=== PATIENT | male | born 1935 | race American Indian/Alaskan Native ===

== ENCOUNTER 2021-03-24 09:49 | Emergency (ER) | payer MEDICARE, OTHER ==
--- NOTE | 2021-03-24 11:41 | Emergency Department Report ---
HPI - General Chief Complaint: Fall Time Seen by Provider: 03/24/21 11:24 - HPI HPI: 85-year-old male with history of hypertension, CAD, and advanced dementia with psychotic features brought in by EMS from his intermediate due to a fall which apparently occurred last night around 8 PM. According to the EMS report, staff at the facility did not know the details of his fall but said he is being transported to the hospital only because of company policy. The patient himself denies any symptoms or complaints. It is unclear whether the patient hit his head when he fell. He is not currently on anticoagulants but takes aspirin. The patient is oriented only to self but not to time, place, or situation. This is apparently his baseline mental status. Further details of the HPI are limited due to the patient's current clinical condition. ED Past Medical Hx - Past Medical History Previous Medical History?: Yes Hx Hypertension: Yes Hx Seizures: Yes Additional medical history: Dementia ED Review of Systems ROS: Stated complaint: FALL Other details as noted in HPI Comment: Unobtainable due to pts medical conditions Physical Exam - Physical Exam Vital Signs: Vital Signs 03/24/21 09:52 Temperature 98.4 F Pulse Rate 85 Respiratory 16 Rate Blood Pressure 141/62 [Left] O2 Sat by Pulse 99 Oximetry Physical Exam: GENERAL: Well developed and well nourished. No acute distress HEAD: Normocephalic. No obvious signs of trauma. ENT: Moist mucous membranes. EYES: Extraocular movements are intact. Pupils are equal round and reactive to light bilaterally NECK: Supple. Full ROM is intact. Trachea is midline. LUNGS: Nonlabored breathing. Equal chest rise bilaterally. Clear to auscultation bilaterally. CARDIOVASCULAR: Regular rate and rhythm. No murmurs or rubs. VASCULAR: Cap refill < 2 seconds ABDOMEN: Abdomen is soft and nondistended. There is no significant tenderness, guarding or rebound. SKIN: Skin is warm and dry NEURO: Patient is awake and alert. He is oriented to self but not to time, place, or situation. logistics tech II-XII grossly intact. No focal deficits. Normal motor and sensory exam throughout. Normal speech. MUSCULOSKELETAL: No obvious deformities. No significant tenderness. Normal ROM throughout. BACK/SPINE: No midline tenderness or step-offs of the C/T/L spine. No costovertebral angle tenderness. ED Course Vital Signs 03/24/21 09:52 Temperature 98.4 F Pulse Rate 85 Respiratory 16 Rate Blood Pressure 141/62 [Left] O2 Sat by Pulse 99 Oximetry ED Medical Decision Making - Lab Data Result diagrams: 03/24/21 12:49 03/24/21 12:49 Lab Results 03/24/21 03/24/21 03/24/21 Range/Units 12:49 12:49 Unknown WBC 6.7 (4.5-11.0) K/mm3 RBC 4.21 (3.65-5.03) M/mm3 Hgb 12.2 (11.8-15.2) gm/dl Hct 38.1 (35.5-45.6) % MCV 91 (84-94) fl MCH 29 (28-32) pg MCHC 32 (32-34) % RDW 13.5 (13.2-15.2) % Plt Count 266 (140-440) K/mm3 Lymph % (Auto) 7.7 L (13.4-35.0) % [place] % (Auto) 15.3 H (0.0-7.3) % Eos % (Auto) 0.0 (0.0-4.3) % Baso % (Auto) 0.3 (0.0-1.8) % Lymph # (Auto) 0.5 L (1.2-5.4) K/mm3 [place] # (Auto) 1.0 H (0.0-0.8) K/mm3 Eos # (Auto) 0.0 (0.0-0.4) K/mm3 Baso # (Auto) 0.0 (0.0-0.1) K/mm3 Seg Neutrophils % 76.7 H (40.0-70.0) % Seg Neutrophils # 5.1 (1.8-7.7) K/mm3 Sodium 134 L (137-145) mmol/L Potassium 4.1 (3.6-5.0) mmol/L Chloride 98.8 (98-107) mmol/L Carbon Dioxide 21 L (22-30) mmol/L Anion Gap 18 mmol/L BUN 9 (9-20) mg/dL Creatinine 0.9 (0.8-1.3) mg/dL Estimated GFR > 60 ml/min BUN/Creatinine Ratio 10 % Glucose 83 (75-100) mg/dL Calcium 9.2 (8.4-10.2) mg/dL Urine Color Straw (Yellow) Urine Turbidity Clear (Clear) Urine pH 7.0 (5.0-7.0) Ur Specific [place] 1.002 L (1.003-1.030) Urine Protein <15 mg/dl (Negative) mg/dL Urine Glucose (UA) Neg (Negative) mg/dL Urine Ketones Neg (Negative) mg/dL Urine Blood Mod (Negative) Urine Nitrite Neg (Negative) Urine Bilirubin Neg (Negative) Urine Urobilinogen < 2.0 (<2.0) mg/dL Ur Leukocyte Esterase Neg (Negative) Urine WBC (Auto) 1.0 (0.0-6.0) /HPF Urine RBC (Auto) < 1.0 (0.0-6.0) /HPF - EKG Data -: EKG Interpreted by [place] - EKG Data 03/24/21 14:55 Normal sinus rhythm. First-degree AV block. Normal axis. Otherwise normal intervals. Anterior Q waves noted. There is no significant ST segment or T wave abnormalities. - Radiology Data Radiology results: report reviewed - Medical Decision Making 85-year-old male with advanced dementia brought in by EMS from his intermediate facility due to a fall which occurred at the facility last night. Details of the fall are unknown. He has no symptoms or complaints at this time. He is afebrile and with normal vital signs. On physical examination, there are no gross signs of trauma. He is oriented to self only. He has a nonfocal neurologic exam otherwise. Nonetheless, given the patient's advanced age and dementia and limited details about the fall, we will perform appropriate work-up with basic labs and plain film x-rays of the chest and pelvis to assess for evidence of traumatic injury. We will also obtain CT of the head and C-spine to assess for evidence of fracture, dislocation, intracranial bleeding, mass, or other finding given the possibility of trauma above the level of the clavicles in a patient greater than 65. We will continue to monitor him closely. Chest x-ray shows no acute abnormalities other than mild cardiomegaly. X-rays of the pelvis show no acute abnormalities. CT of the head shows no acute abnormalities. CT of the cervical spine shows no acute abnormalities. Labs have resulted and reveal no significant leukocytosis or anemia. Creatinine is within normal range and there are no significant electrolyte abnormalities. Urinalysis shows no signs of infection. On repeat assessment, the patient remains asymptomatic. He will be discharged back to his facility. Critical care attestation.: If time is entered above; I have spent that time in minutes in the direct care of this critically ill patient, excluding procedure time. ED Disposition Clinical Impression: Fall from ground level, Dementia Disposition: 03 ASSISTED FACILITY Is pt being admited?: No Instructions: Fall Prevention in the Home, Adult Referrals: PRIMARY CARE, [Primary Care Provider] - 3-5 Days
--- NOTE | 2021-03-24 12:23 | Cat Scan Report ---
CT BRAIN: 03/24/2021 INDICATION / CLINICAL INFORMATION: fall. COMPARISON: None available. FINDINGS: BRAIN/INTRACRANIAL STRUCTURES: Unenhanced CT images of the brain demonstrate no evidence of acute abn ormality. Ventricles and sulci are prominent in size, consistent with age-related diffuse cerebral atrophy. There is no evidence of acute large vessel territory ischemic injury, hemorrhage, or mass. There are no abnormal extra-axial fluid collections. EXTRACRANIAL STRUCTURES: Unremarkable. IMPRESSION: No acute abnormality. Chronic and age-related changes. All CT scans at this location are performed using dose reduction to ALARA by means of automated expos ure control. Signer Name: Vinny Smith MD Signed: 03/24/2021 12:18 PM Workstation Name: [id number]
--- NOTE | 2021-03-24 12:23 | XRay Report ---
XR pelvis 1-2V INDICATION / CLINICAL INFORMATION: fall. COMPARISON: None available. FINDINGS: No acute fracture. Normal alignment. Joint spaces are preserved. No destructive osseous lesion or s uspicious periosteal reaction. Impression: 1.No acute fracture. Signer Name: Zachary Valdez MD Signed: 03/24/2021 12:16 PM Workstation Name: [email or web address]
--- NOTE | 2021-03-24 12:25 | Cat Scan Report ---
CT CERVICAL SPINE: 03/24/2021 INDICATION / CLINICAL INFORMATION: fall. COMPARISON: None available. FINDINGS: CT images of the cervical spine were obtained. Images are evaluated in the axial, coronal, and sagitt al planes. There is no evidence of acute abnormality. There is extensive cervical disc fusion and extensive anterior osteophyte. This disc fusion, seen mos t prominently at C5-T1, may be due to postoperative change or extensive degenerative change. Degenerative changes and fusion also involves the facet joints bilaterally, more extensively on the l eft. CRANIOCERVICAL JUNCTION: Unremarkable. PARASPINAL STRUCTURES: Unremarkable IMPRESSION: No evidence of acute abnormality. Extensive degenerative changes as detailed above. All CT scans at this location are performed using dose reduction to ALARA by means of automated expos ure control. Signer Name: Vinny Smith MD Signed: 03/24/2021 12:20 PM Workstation Name: [id number]
--- NOTE | 2021-03-24 12:29 | XRay Report ---
CHEST 1 VIEW 03/24/2021 12:10 PM INDICATION / CLINICAL INFORMATION: fall. COMPARISON: None available. FINDINGS: SUPPORT DEVICES: None. HEART / MEDIASTINUM: Mild cardiac enlargement. LUNGS / PLEURA: Mild vascular congestion. No pneumothorax. ADDITIONAL FINDINGS: No significant additional findings. IMPRESSION: 1. Mild cardiac enlargement. 2. Mild vascular congestion. Signer Name: Ketan Garrett MD Signed: 03/24/2021 12:25 PM Workstation Name: [id number]
[2021-03-24 13:30] LABS: Basophils % (Auto) 0.3 % (0.0-1.8); Hematocrit 38.1 % (35.5-45.6); Hemoglobin 12.2 gm/dl (11.8-15.2); Lymphocytes # (Auto) 0.5 K/mm3 (1.2-5.4); Lymphocytes % (Auto) 7.7 % (13.4-35.0); Mean Corpuscular HGB Conc 32 % (32-34); Mean Corpuscular Volume 91 fl (84-94); Monocytes % (Auto) 15.3 % (0.0-7.3); Platelet Count 266 K/mm3 (140-440); Red Blood Count 4.21 M/mm3 (3.65-5.03); Red Cell Distribution Width 13.5 % (13.2-15.2)
[2021-03-24 13:49] LABS: BUN/Creatinine Ratio 10; Blood Urea Nitrogen 9 mg/dL (9-20); Calcium 9.2 mg/dL (8.4-10.2); Hemolysis Index 10
[2021-03-24 15:28] LABS: Bilirubin,Urine NEG (Negative); Blood,Urine MOD (Negative); Color,Urine Straw (Yellow); Protein,Urine <15 mg/dL mg/dL (Negative); RBC,Urine < 1.0 /HPF (0.0-6.0); Urobilinogen,Urine < 2.0 mg/dL (<2.0)
[2021-03-25 00:43] VITALS: BP 162/60
--- NOTE | 2021-03-25 12:52 | Electrocardiograph Report ---
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
== END 2021-03-25 00:42 ==
LOC: ED 09:49
DX: F03.90 Unspecified dementia, unspecified severity, without behavioral disturbance, psychotic disturbance, mood disturbance, and anxiety (principal); I10 Essential (primary) hypertension; W01.0XXA Fall on same level from slipping, tripping and stumbling without subsequent striking against object, initial encounter; Y93.89 Activity, other specified; Y92.89 Other specified places as the place of occurrence of the external cause; Y99.8 Other external cause status
CPT/HCPCS: 36415; 70450; 71045; 72125; 72170; 80048; 81001; 85025; 93005; 99284

== ENCOUNTER 2021-05-08 06:01 | Inpatient (IN) | payer OTHER, MEDICARE ==
[2021-05-08] MEDS ORDERED: levETIRAcetam 1000 MG/NS 0.75% 1,000 MG/100 ML BAG IV ONE (06:27)
--- NOTE | 2021-05-08 07:04 | XRay Report ---
CHEST 1 VIEW INDICATION / CLINICAL INFORMATION: seizue. COMPARISON: 03/24/2021 FINDINGS: SUPPORT DEVICES: None. HEART / MEDIASTINUM: No significant abnormality. LUNGS / PLEURA: No significant pulmonary or pleural abnormality. No pneumothorax. ADDITIONAL FINDINGS: No significant additional findings. IMPRESSION: 1. No acute findings. No interval change. Signer Name: Rasheeda Rob MD Signed: 05/08/2021 6:59 AM Workstation Name: [id number]
--- NOTE | 2021-05-08 07:21 | Emergency Department Report ---
ED Seizure HPI - General Chief Complaint: Seizure Stated Complaint: SEIZURES Time Seen by Provider: 05/08/21 06:16 Source: EMS, RN notes reviewed, old records reviewed Mode of arrival: Stretcher Limitations: Other - History of Present Illness Initial Comments: 85-year-old male with a past medical history of seizures currently on Keppra, dementia, hypertension, elevated cholesterol, and BPH presents to the hospital from detention for seizure. Patient is apparently at baseline currently and is primarily nonverbal secondary to significant dementia. History obtained from EMS who state that staff witnessed a 2-minute seizure followed by postictal state with return to baseline mental status. Positive bleeding from mouth noted secondary to tongue laceration. Dentures removed after seizure. Patient has been compliant with medications administer by detention. EMS reports that the EKG revealed first-degree AV block with intermittent dropped beats on rhythm strip. - Related Data Allergies Allergy/AdvReac Type Severity Reaction Status Date / Time baclofen Allergy Unknown Verified 05/08/21 06:35 ED Review of Systems ROS: Stated complaint: SEIZURES Other details as noted in HPI Comment: Unobtainable due to pts medical conditions ED Past Medical Hx - Past Medical History Hx Hypertension: Yes Hx Seizures: Yes Additional medical history: Dementia ED Physical Exam - General Limitations: No Limitations - Other Other exam information: General: No acute distress Head: Atraumatic Eyes: normal appearance ENT: Right-sided centimeter tongue laceration without gaping, no active bleeding Neck: Normal appearance, no midline tenderness Chest: Clear to auscultation bilaterally CV: Regular rate and rhythm Abdomen: Soft, normal bowel sounds, nontender, nondistended, no rebound or guarding Back: Normal inspection Extremity: Normal inspection, full range of motion Neuro: Alert not speaking reliably following commands Psych: Appropriate behavior Skin: No rash ED Course Vital Signs 05/08/21 05/08/21 05/08/21 06:44 06:46 07:00 Temperature Pulse Rate 87 82 Respiratory 18 22 Rate Blood Pressure 171/79 O2 Sat by Pulse 98 99 96 Oximetry 05/08/21 05/08/21 05/08/21 07:21 07:30 07:46 Temperature 98.2 F Pulse Rate 65 74 Respiratory 14 10 L Rate Blood Pressure 162/79 158/77 O2 Sat by Pulse 97 98 Oximetry 05/08/21 05/08/21 05/08/21 08:19 08:31 08:45 Temperature Pulse Rate 81 78 82 Respiratory 18 15 20 Rate Blood Pressure 158/77 156/82 219/87 O2 Sat by Pulse 98 100 Oximetry 05/08/21 09:01 Temperature Pulse Rate 76 Respiratory 15 Rate Blood Pressure 173/73 O2 Sat by Pulse 100 Oximetry - Consultations Consultation #1: 05/08/21 09:06 Dr. Kruse was consulted to evaluate patient regarding abnormal EKG/rhythm strip findings first-degree AV block with intermittent drop P and QRS complexes 05/08/21 09:42 Cardiology consult at the bedside appreciated. Rhythm likely first-degree AV block with sinus pause and does not represent any type II block ED Medical Decision Making - Lab Data Result diagrams: 05/08/21 06:56 05/08/21 06:56 Lab Results 05/08/21 05/08/21 Range/Units 06:56 06:56 WBC 11.9 H (4.5-11.0) K/mm3 RBC 4.49 (3.65-5.03) M/mm3 Hgb 12.4 (11.8-15.2) gm/dl Hct 39.6 (35.5-45.6) % MCV 88 (84-94) fl MCH 28 (28-32) pg MCHC 31 L (32-34) % RDW 14.1 (13.2-15.2) % Plt Count 286 (140-440) K/mm3 Add Manual Diff Complete Total Counted 100 Seg Neutrophils % Fire Engine Operator Seg Neuts % (Manual) 87.0 H (40.0-70.0) % Band Neutrophils % 0 % Lymphocytes % (Manual) 5.0 L (13.4-35.0) % Reactive Lymphs % (Man) 0 % Monocytes % (Manual) 7.0 (0.0-7.3) % Eosinophils % (Manual) 1.0 (0.0-4.3) % Basophils % (Manual) 0 (0.0-1.8) % Metamyelocytes % 0 % Myelocytes % 0 % Promyelocytes % 0 % Blast Cells % 0 % Nucleated RBC % Not Reportable Seg Neutrophils # Man 10.4 H (1.8-7.7) K/mm3 Band Neutrophils # 0.0 K/mm3 Lymphocytes # (Manual) 0.6 L (1.2-5.4) K/mm3 Abs React Lymphs (Man) 0.0 K/mm3 Monocytes # (Manual) 0.8 (0.0-0.8) K/mm3 Eosinophils # (Manual) 0.1 (0.0-0.4) K/mm3 Basophils # (Manual) 0.0 (0.0-0.1) K/mm3 Metamyelocytes # 0.0 K/mm3 Myelocytes # 0.0 K/mm3 Promyelocytes # 0.0 K/mm3 Blast Cells # 0.0 K/mm3 WBC Morphology Not Reportable Hypersegmented Neuts Not Reportable Hyposegmented Neuts Not Reportable Hypogranular Neuts Not Reportable Smudge Cells Not Reportable Toxic Granulation Not Reportable Toxic Vacuolation Not Reportable Dohle Bodies Not Reportable Pelger-Huet Anomaly Not Reportable Sondra Rods Not Reportable Platelet Estimate Consistent w auto Clumped Platelets Not Reportable Plt Clumps, EDTA Not Reportable Large Platelets Not Reportable Giant Platelets Not Reportable Platelet Satelliting Not Reportable Plt Morphology Comment Not Reportable RBC Morphology Normal Dimorphic RBCs Not Reportable Polychromasia Not Reportable Hypochromasia Not Reportable Poikilocytosis Not Reportable Anisocytosis Not Reportable Microcytosis Not Reportable Macrocytosis Not Reportable Spherocytes Not Reportable Pappenheimer Bodies Not Reportable Sickle Cells Not Reportable Target Cells Not Reportable Tear Drop Cells Not Reportable Ovalocytes Not Reportable Helmet Cells Not Reportable Amado-Beatrice Bodies Not Reportable [place] Rings Not Reportable Wilma Cells Not Reportable Bite Cells Not Reportable Crenated Cell Not Reportable Elliptocytes Not Reportable Acanthocytes (Spur) Not Reportable Rouleaux Not Reportable Hemoglobin C Crystals Not Reportable Schistocytes Not Reportable Malaria parasites Not Reportable Joshua Bodies Not Reportable Hem Pathologist Commnt No Sodium 122 L (137-145) mmol/L Potassium 3.9 (3.6-5.0) mmol/L Chloride 86.1 L (98-107) mmol/L Carbon Dioxide 20 L (22-30) mmol/L Anion Gap 20 mmol/L BUN 6 L (9-20) mg/dL Creatinine 0.7 L (0.8-1.3) mg/dL Estimated GFR > 60 ml/min BUN/Creatinine Ratio 9 % Glucose 117 H (75-100) mg/dL Calcium 9.4 (8.4-10.2) mg/dL Magnesium 1.90 (1.7-2.3) mg/dL - EKG Data -: EKG Interpreted by Me (First-degree AV block with functional) EKG shows normal: sinus rhythm, intervals (Prolonged MI interval 290), QRS complexes (QRS duration normal 83), ST-T waves (No STEMI) - EKG Data When compared to previous EKG there are: changes noted (Chronic first-degree block with new drop in QRS complex) 05/08/21 09:10 EMS rhythm strips first-degree AV block with intermittent dropped P and QRS complexes. Narrow complex qrs - Radiology Data Radiology results: report reviewed CHEST 1 VIEW INDICATION / CLINICAL INFORMATION: seizue. COMPARISON: 03/24/2021 FINDINGS: SUPPORT DEVICES: None. HEART / MEDIASTINUM: No significant abnormality. LUNGS / PLEURA: No significant pulmonary or pleural abnormality. No pneumothorax. ADDITIONAL FINDINGS: No significant additional findings. IMPRESSION: 1. No acute findings. No interval change. CT HEAD WITHOUT CONTRAST INDICATION / CLINICAL INFORMATION: seizure, dementia. TECHNIQUE: All CT scans at this location are performed using CT dose reduction for ALARA by means of automated exposure control. COMPARISON: None available. FINDINGS: HEMORRHAGE: No evidence of intracranial hemorrhage or extra-axial fluid collection. EXTRA-AXIAL SPACES: Cortical sulci and sylvian fissures are enlarged reflecting a degree of parenchymal volume loss which is within normal limits for the patient's age of 85 years. Basilar cisterns have an unremarkable appearance. VENTRICULAR SYSTEM: The third and lateral ventricles are enlarged reflecting presence of central greater than cortical parenchymal volume loss. CEREBRAL PARENCHYMA: Periventricular and deep white matter lucency is observed. This is probably secondary to microvascular ischemic change. There is no indication of recent infarction. No areas of encephalomalacia are identified. MIDLINE SHIFT OR HERNIATION: There is no mass effect. CEREBELLUM / BRAINSTEM: Brainstem has an unremarkable appearance. Age related cerebellar atrophy is noted. MIDLINE STRUCTURES:Pituitary gland has an unremarkable appearance. No abnormalities are seen in the pineal region. INTRACRANIAL VESSELS: Calcified atherosclerotic plaque is seen at the proximal V4 segment of the left vertebral artery. CRANIOCERVICAL JUNCTION:No significant abnormality. ORBITS: visualized portions of the orbits have an unremarkable appearance. SOFT TISSUES of HEAD: No significant abnormality. CALVARIUM: Evaluation of bone windows reveals no abnormalities. PARANASAL SINUSES / MASTOID AIR CELLS: Paranasal sinuses are free from inflammatory mucosal disease. Mastoid air cells are normally pneumatized. ADDITIONAL FINDINGS: None. IMPRESSION: 1. Central greater than cortical parenchymal volume loss and moderate microvascular ischemic change. 2. No acute intracranial abnormality. No significant interval change in comparison to head CT 03/24/2021. - Medical Decision Making 85-year-old demented patient with history of seizures presents to the hospital after having a seizure at the detention despite medication noncompliance. Patient apparently is at his baseline but he has significant dementia and unable to communicate or reliably follow commands. CT head unchanged compared to March 2021. Patient does have a tongue laceration that is not gaping or actively bleeding. Labs reveal hyponatremia and normal saline initiated. Cardiology consult requested to review EMS rhythm strips and EKG for rhythm clarification and management. Dr. Kruse came to bedside to evaluate EKG and interprets rhythm as first- degree AV block with sinus pause Critical Care Time: No Critical care attestation.: If time is entered above; I have spent that time in minutes in the direct care of this critically ill patient, excluding procedure time. ED Disposition Clinical Impression: Breakthrough seizure, Hyponatremia, Tongue laceration, Dementia, AV block, 1st degree Disposition: 09 ADMITTED INPATIENT Is pt being admited?: Yes Condition: Stable Referrals: PRIMARY CARE, [Primary Care Provider] - 3-5 Days Time of Disposition: 09:06
[2021-05-08 07:52] LABS: Hematocrit 39.6 % (35.5-45.6); Hemoglobin 12.4 gm/dl (11.8-15.2); Mean Corpuscular HGB Conc 31 % (32-34); Mean Corpuscular Volume 88 fl (84-94); Platelet Count 286 K/mm3 (140-440); Red Blood Count 4.49 M/mm3 (3.65-5.03); Red Cell Distribution Width 14.1 % (13.2-15.2)
[2021-05-08 07:59] LABS: Blood Urea Nitrogen 6 mg/dL (9-20); Calcium 9.4 mg/dL (8.4-10.2); Hemolysis Index 14
[2021-05-08] MEDS ORDERED: SODIUM CHLORIDE 0.9% 1000 ML 1,000 ML IV ONE (08:02)
[2021-05-08 08:19] LABS: BUN/Creatinine Ratio 9
[2021-05-08 08:39] LABS: Basophils % (Manual) 0 % (0.0-1.8); Platelet Estimate Consistent w Auto; RBC Morphology Normal; Total Cells Counted 100
--- NOTE | 2021-05-08 08:47 | Cat Scan Report ---
CT HEAD WITHOUT CONTRAST INDICATION / CLINICAL INFORMATION: seizure, dementia. TECHNIQUE: All CT scans at this location are performed using CT dose reduction for ALARA by means of automated e xposure control. COMPARISON: None available. FINDINGS: HEMORRHAGE: No evidence of intracranial hemorrhage or extra-axial fluid collection. EXTRA-AXIAL SPACES: Cortical sulci and sylvian fissures are enlarged reflecting a degree of parenchym al volume loss which is within normal limits for the patient's age of 85 years. Basilar cisterns have an unremarkable appearance. VENTRICULAR SYSTEM: The third and lateral ventricles are enlarged reflecting presence of central grea ter than cortical parenchymal volume loss. CEREBRAL PARENCHYMA: Periventricular and deep white matter lucency is observed. This is probably seco ndary to microvascular ischemic change. There is no indication of recent infarction. No areas of ence phalomalacia are identified. MIDLINE SHIFT OR HERNIATION: There is no mass effect. CEREBELLUM / BRAINSTEM: Brainstem has an unremarkable appearance. Age related cerebellar atrophy is n oted. MIDLINE STRUCTURES:Pituitary gland has an unremarkable appearance. No abnormalities are seen in the p ineal region. INTRACRANIAL VESSELS: Calcified atherosclerotic plaque is seen at the proximal V4 segment of the left vertebral artery. CRANIOCERVICAL JUNCTION:No significant abnormality. ORBITS: visualized portions of the orbits have an unremarkable appearance. SOFT TISSUES of HEAD: No significant abnormality. CALVARIUM: Evaluation of bone windows reveals no abnormalities. PARANASAL SINUSES / MASTOID AIR CELLS: Paranasal sinuses are free from inflammatory mucosal disease. Mastoid air cells are normally pneumatized. ADDITIONAL FINDINGS: None. IMPRESSION: 1. Central greater than cortical parenchymal volume loss and moderate microvascular ischemic change. 2. No acute intracranial abnormality. No significant interval change in comparison to head CT 021. Signer Name: Nasir Colin MD Signed: 05/08/2021 8:43 AM Workstation Name: [id number]
[2021-05-08] MEDS ORDERED: oxyCODONE /ACETAMINOPHEN 5-325MG TAB PO PRN (11:48)
[2021-05-08] MEDS ORDERED: ONDANSETRON 4 MG/2 ML INJ IV PRN (11:48)
[2021-05-08] MEDS ORDERED: HYDROmorphone 1 MG/1 ML INJ IV PRN (11:48)
[2021-05-08] MEDS ORDERED: ACETAMINOPHEN 325 MG TAB PO PRN (11:48)
[2021-05-08] MEDS ORDERED: ALBUTEROL 2.5 MG/3 ML NEBU IH PRN (11:48)
--- NOTE | 2021-05-08 11:48 | History and Physical Report ---
History of Present Illness Chief complaint: He had a seizure History of present illness: 85 YO Male [facility] Resident with HTN, Vascular Dementia, Cerebral Atherosclerosis, Seizure disorder, HLD, BPH presents to ED for evaluation. Patient is confused with diminished cognition at the time of my evaluation and is unable to provide history. Patient history taken from EMS staff, ED staff, as well as [facility] facility staff. As per staff the patient experienced multiple witnessed seizures that lasted for longer than 5 minutes. EMS was notified and upon arrival the patient was found to be in distress and subsequently transported to [facility] for further care and evaluation of the aforementioned symptoms. The patient was seen and evaluated in the emergency department. All lab and imaging studies reviewed. Patient found to have status epilepticus currently in a postictal state, metabolic en cephalopathy, hyponatremia syndrome, metabolic acidosis, accelerated hypertension. Patient admitted to [facility] due to increased risk of worsening symptoms. Patient treated with IV fluid resuscitation therapy, serial sodium monitoring. Patient also found to have first-degree heart block on EKG. Card iology team consulted in ED. No reports of fever, chills, chest pain, palpitation, productive cough, skin rash, recent contact, known exposure to COVID-19. No prior admission for review. All medication listed at time of admission has been reconciled. Advanced care planning conducted in ED. Past History Past Medical History: hypertension, hyperlipidemia, seizures, other (See HPI) Past Surgical History: No surgical history, Other (Reviewed) Social history: single. denies: smoking, alcohol abuse, prescription drug abuse Family history: hypertension Medications and Allergies Allergies Allergy/AdvReac Type Severity Reaction Status Date / Time baclofen Allergy Unknown Verified 05/08/21 06:35 Active Meds: Active Medications Sodium Chloride (Nacl 0.9% 1000 Ml) 1,000 mls @ 250 mls/hr IV ONCE ONE Stop: 05/08/21 12:01 Review of Systems ROS unobtainable: due to mental status Exam - Constitutional Vitals: Temp Pulse Resp BP Pulse Ox 98.2 F 75 14 169/57 100 05/08/21 07:21 05/08/21 10:31 05/08/21 10:31 05/08/21 10:31 05/08/21 10:31 General appearance: Present: mild distress - EENT Eyes: Present: PERRL ENT: clear oral mucosa, hearing decreased - Neck Neck: Present: supple, normal ROM - Respiratory Respiratory effort: normal Respiratory: bilateral: CTA - Cardiovascular Heart Sounds: Present: S1 & S2. Absent: rub, click - Extremities Extremities: pulses symmetrical, No edema Peripheral Pulses: within normal limits - Abdominal General gastrointestinal: Present: soft, non-tender, non-distended, normal bowel sounds Male genitourinary: Present: normal - Integumentary Integumentary: Present: clear, dry, clammy - Musculoskeletal Musculoskeletal: generalized weakness - Psychiatric Psychiatric: no appropriate mood/affect, no intact judgment & insight, no memory intact - Neurologic Neurologic: CNII-XII intact, no focal deficits, moves all extremities, no gait normal Results - Labs CBC & Chem 7: 05/08/21 06:56 05/08/21 06:56 Labs: Abnormal lab results 05/08/21 05/08/21 Range/Units 06:56 06:56 WBC 11.9 H (4.5-11.0) K/mm3 MCHC 31 L (32-34) % Seg Neuts % (Manual) 87.0 H (40.0-70.0) % Lymphocytes % (Manual) 5.0 L (13.4-35.0) % Seg Neutrophils # Man 10.4 H (1.8-7.7) K/mm3 Lymphocytes # (Manual) 0.6 L (1.2-5.4) K/mm3 Sodium 122 L (137-145) mmol/L Chloride 86.1 L (98-107) mmol/L Carbon Dioxide 20 L (22-30) mmol/L BUN 6 L (9-20) mg/dL Creatinine 0.7 L (0.8-1.3) mg/dL Glucose 117 H (75-100) mg/dL Assessment and Plan - Patient Problems (1) Hyponatremia syndrome Current Visit: Yes Status: Acute Plan to address problem: IV fluid resuscitation therapy, serial BMP, neuro check, seizure precautions, aspiration precautions, repeat BMP in a.m., Monitor fluid balance. (2) Status epilepticus Current Visit: Yes Status: Acute Plan to address problem: Currently in a postictal state, seizure precautions, aspiration precautions, supportive care, Keppra level. Keppra therapy. (3) Metabolic acidosis Current Visit: Yes Status: Acute Plan to address problem: IV fluid resuscitation therapy, supportive care. BMP, repeat BMP in a.m. (4) Hypertensive urgency Current Visit: Yes Status: Acute Plan to address problem: Monitor blood pressure every shift, continue oral antihypertensive therapy. (5) Metabolic encephalopathy Current Visit: Yes Status: Acute Plan to address problem: Neuro check, seizure precautions, supportive care. Aspiration precautions, fall precautions. (6) AV block, 1st degree Current Visit: Yes Status: Acute Plan to address problem: Cardiology team consulted, further care and evaluation as per cardiology team (7) DVT prophylaxis Current Visit: Yes Status: Acute Plan to address problem: SCD to bilateral lower extremities while in bed (8) Advance care planning Current Visit: Yes Status: Acute Plan to address problem: Disease education conducted, care plan discussed, diagnoses discussed, prognosis discussed, patient is full code, +30 minutes.
--- NOTE | 2021-05-08 13:10 | Consultation ---
History of Present Illness Consult date: 05/08/21 Requesting physician: CHUN PABON Consult reason: other (Abnormal EKG rhythm) History of present illness: Patient is a 85-year-old male with a past medical history as of seizure, dementia, hypertension, hyperlipidemia and BPH who was [facility] a [facility] for [facility]. History is taken from the chart due to patient's mental status. Per documentation patient is primarily nonverbal and altered due to his dementia. half-way staff witnessed a 2-minute seizure followed by postictal state and patient. Patient also had tongue laceration after his seizure. Patient was then transported to [facility]. In ED patient found to be hyponatremic and have EKG with first-degree block with sinus pauses. Patient is previously unknown to our practice. Cardiology is co nsulted for abnormal rhythm strip Past History Past Medical History: hypertension, seizures, other (dementia) Medications and Allergies Allergies Allergy/AdvReac Type Severity Reaction Status Date / Time baclofen Allergy Unknown Verified 05/08/21 06:35 Active Meds: Active Medications Acetaminophen (Acetaminophen 325 Mg Tab) 650 mg PO Q4H PRN PRN Reason: Pain MILD(1-3)/Fever >100.5/TALAVERA Albuterol (Albuterol 2.5 Mg/3 Ml Nebu) 2.5 mg IH Q4HRT PRN PRN Reason: Shortness Of Breath Hydromorphone HCl (Hydromorphone 1 Mg/1 Ml Inj) 0.5 mg IV Q23H PRN PRN Reason: Pain , Severe (7-10) Sodium Chloride (Nacl 0.9% 1000 Ml) 1,000 mls @ 100 mls/hr IV DIRECT NATALIE Ondansetron HCl (Ondansetron 4 Mg/2 Ml Inj) 4 mg IV Q8H PRN PRN Reason: Nausea And Vomiting Oxycodone/Acetaminophen (Oxycodone /Acetaminophen 5-325mg Tab) 1 tab PO Q16H PRN PRN Reason: Pain, Moderate (4-6) Sodium Chloride (Sodium Chloride 0.9% 10 Ml Flush Syringe) 10 ml IV BID NATLAIE Sodium Chloride (Sodium Chloride 0.9% 10 Ml Flush Syringe) 10 ml IV PRN PRN PRN Reason: LINE FLUSH Review of Systems ROS unobtainable: due to mental status Physical Examination Vital Signs Pulse Ox 98 01/31/22 06:44 General appearance: no acute distress HEENT: Positive: PERRL Neck: Positive: trachea midline Cardiac: Positive: Reg Rate and Rhythm Lungs: Positive: Normal Breath Sounds Neuro: Positive: Grossly Intact Abdomen: Positive: Soft Skin: Negative: Rash, Suspicious Lesions, Ulceration Extremities: Present: upper extr. pulses. Absent: edema Results 05/08/21 06:56 05/08/21 06:56 CBC 05/08/21 Range/Units 06:56 WBC 11.9 H (4.5-11.0) K/mm3 RBC 4.49 (3.65-5.03) M/mm3 Hgb 12.4 (11.8-15.2) gm/dl Hct 39.6 (35.5-45.6) % Plt Count 286 (140-440) K/mm3 Comprehensive Metabolic Panel 05/08/21 Range/Units 06:56 Sodium 122 L (137-145) mmol/L Potassium 3.9 (3.6-5.0) mmol/L Chloride 86.1 L (98-107) mmol/L Carbon Dioxide 20 L (22-30) mmol/L BUN 6 L (9-20) mg/dL Creatinine 0.7 L (0.8-1.3) mg/dL Glucose 117 H (75-100) mg/dL Calcium 9.4 (8.4-10.2) mg/dL - Imaging and Cardiology Echo: pending EKG interpretations - Telemetry EKG Rhythm: Sinus Rhythm - EKG Sinus rhythms and dysrhythmias: sinus rhythm AV and intraventricular conduction: 1 AV block Assessment and Plan Patient is a 85-year-old male with a past medical history as of seizure, dementia, hypertension, hyperlipidemia and BPH who was [facility] for [facility] Seizures Hyponatremia Abnormal EKG Dementia HTN Plan: EKG shows sinus 83 with first-degree AV block and sinus pause. No acute ischemic changes At time of interview patient is resting in bed in no acute distress. Sinus pauses may be result of seizure and hyponatremia. Recommend correcting electrolyte imbalance Echo pending Recommend holding beta-blockers due to sinus pauses. Continue to monitor on telemetry Repeat EKG in a.m. Patient in conjunction with Dr. Kruse who agrees with this plan of care - Patient Problems (1) AV block, 1st degree Current Visit: Yes Status: Acute (2) Breakthrough seizure Current Visit: Yes Status: Acute (3) Dementia Current Visit: Yes Status: Acute (4) Hyponatremia Current Visit: Yes Status: Acute (5) Tongue laceration Current Visit: Yes Status: Acute
[2021-05-09] MEDS: SODIUM CHLORIDE 0.9% 1000 ML 1,000 ML IV SCH ×2 (00:52→09:39)
[2021-05-09 06:09] LABS: BUN/Creatinine Ratio 10; Blood Urea Nitrogen 10 mg/dL (9-20); Calcium 9.4 mg/dL (8.4-10.2); Hemolysis Index 3
--- NOTE | 2021-05-09 09:32 | Consultation ---
History of Present Illness Consult date: 05/09/21 Reason for Consult: witnessed seizure, advanced Dementia History of present illness: He had a seizure History of present illness: 85 YO Male [facility] Facility Resident with HTN, Vascular Dementia, Cerebral Atherosclerosis, Seizure disorder, HLD, BPH presents to ED for evaluation. Patient is confused with diminished cognition at the time of my evaluation and is unable to provide history. Patient history taken from EMS staff, ED staff, as well as retirement facility staff. As per staff the patient experienced multiple witnessed seizures that lasted for longer than 5 minutes. EMS was notified and upon arrival the patient was found to be in distress and subsequently transported to [facility] for further care and evaluation of the aforementioned symptoms. The patient was seen and evaluated in the emerge ncy department. All lab and imaging studies reviewed. Patient found to have status epilepticus currently in a postictal state, metabolic encephalopathy, hyponatremia syndrome, metabolic acidosis, accelerated hypertension. Patient admitted to IMCU due to increased risk of worsening symptoms. Patient treated with IV fluid resuscitation therapy, serial sodium monitoring. Patient also found to have first-degree heart block on EKG. Cardiology team consulted in ED. No reports of fever, chills, chest pain, palpitation, productive cough, skin rash, recent contact, known exposure to COVID-19. No prior admission for review. All medication listed at time of admission has been reconciled. Torie castellanos care planning conducted in ED. Today he is alert oriented to name and birthday only ,he report having seizure he bit his tongue CT brain is remarkable for atrophy NA today is 139 Past History Past Medical History: hypertension, hyperlipidemia, seizures, other (See HPI) Past Surgical History: No surgical history, Other (Reviewed) Social history: single. denies: smoking, alcohol abuse, prescription drug abuse Family history: hypertension Medications and Allergies Allergies Allergy/AdvReac Type Severity Reaction Status Date / Time baclofen Allergy Unknown Verified 05/08/21 06:35 Active Meds: Active Medications Sodium Chloride (Nacl 0.9% 1000 Ml) 1,000 mls @ 250 mls/hr IV ONCE ONE Stop: 05/08/21 12:01 Review of Systems ROS unobtainable: due to mental status Past History Past Medical History: hypertension, hyperlipidemia, seizures, other (See HPI) Past Surgical History: No surgical history, Other (Reviewed) Social history: single. denies: smoking, alcohol abuse, prescription drug abuse Family history: hypertension Medications and Allergies Allergies Allergy/AdvReac Type Severity Reaction Status Date / Time baclofen Allergy Unknown Verified 05/08/21 06:35 Home Medications Medication Instructions Recorded Confirmed Last Taken Type Aspirin BABY CHEW TAB 81 mg PO QDAY 05/09/21 05/09/21 05/08/21 09:00 History AtorvaSTATin [Lipitor] 10 mg PO QHS 05/09/21 05/09/21 05/08/21 19:00 History Folic Acid [Folvite] 1 mg PO QDAY 05/09/21 05/09/21 05/08/21 09:00 History Metoprolol [Lopressor TAB] 50 mg PO QDAY 05/09/21 05/09/21 05/08/21 09:00 History Perphenazine 2 mg PO QDAY 05/09/21 05/09/21 05/08/21 09:00 History Sennosides Tab [Senokot] 17.2 mg PO BID 05/09/21 05/09/21 05/08/21 19:00 History Tamsulosin [Flomax] 0.8 mg PO QDAY 05/09/21 05/09/21 05/08/21 09:00 History amLODIPine 10 mg PO QDAY 05/09/21 05/09/21 05/08/21 09:00 History levETIRAcetam [Keppra TAB] 750 mg PO BID 05/09/21 05/09/21 05/08/21 17:00 History Active Meds: Active Medications Acetaminophen (Acetaminophen 325 Mg Tab) 650 mg PO Q4H PRN PRN Reason: Pain MILD(1-3)/Fever >100.5/TALAVERA Albuterol (Albuterol 2.5 Mg/3 Ml Nebu) 2.5 mg IH Q4HRT PRN PRN Reason: Shortness Of Breath Amlodipine Besylate (Amlodipine 10 Mg Tab) 10 mg PO DAILY NATALIE Aspirin (Aspirin Ec 81 Mg Tab) 81 mg PO QDAY NATALIE Atorvastatin Calcium (Atorvastatin 10 Mg Tab) 10 mg PO QHS NATALIE Folic Acid (Folic Acid 1 Mg Tab) 1 mg PO QDAY NATALIE Hydromorphone HCl (Hydromorphone 1 Mg/1 Ml Inj) 0.5 mg IV Q23H PRN PRN Reason: Pain , Severe (7-10) Last Admin: 05/08/21 16:30 Dose: 0.5 mg Sodium Chloride (Nacl 0.9% 1000 Ml) 1,000 mls @ 100 mls/hr IV DIRECT NATALIE Last Admin: 05/09/21 00:52 Dose: 100 mls/hr Levetiracetam (Levetiracetam 500 Mg/5 Ml Oral Liqd) 750 mg PO BID [facility] Metoprolol Succinate (Metoprolol Succinate Xl 50 Mg Tab) 50 mg PO QDAY [facility] Ondansetron HCl (Ondansetron 4 Mg/2 Ml Inj) 4 mg IV Q8H PRN PRN Reason: Nausea And Vomiting Oxycodone/Acetaminophen (Oxycodone /Acetaminophen 5-325mg Tab) 1 tab PO Q16H PRN PRN Reason: Pain, Moderate (4-6) Perphenazine (Perphenazine 4 Mg Tab) 2 mg PO QDAY [facility] Senna (Sennosides 8.6 Mg Tab) 17.2 mg PO BID [facility] Sodium Chloride (Sodium Chloride 0.9% 10 Ml Flush Syringe) 10 ml IV BID [facility] Last Admin: 05/08/21 22:55 Dose: 10 ml Sodium Chloride (Sodium Chloride 0.9% 10 Ml Flush Syringe) 10 ml IV PRN PRN PRN Reason: LINE FLUSH Tamsulosin HCl (Tamsulosin 0.4 Mg Cap) 0.8 mg PO QDAY [facility] Physical Examination - Vital Signs Vital Signs: Vital Signs Pulse Ox 98 05/08/21 06:44 - Constitutional General appearance: comfortable - EENT EENT: Present: PERRL, mucous membranes moist - Respiratory Respiratory: Present: lungs clear, rhonchi - Cardiovascular Cardiovascular: Present: regular rate, normal S1, normal S2 Extremities: Present: no peripheral edema bilatateraly, no clubbing, cyanosis - Gastrointestinal Gastrointestinal: Present: normoactive bowel sounds - Integumentary Integumentary: Present: normal - Neurologic Cranial nerve examination: PERRL, EOMI, facial droop Speech examination: intact Sensorimotor examination: intact Detailed motor examination: grossly full strength in Results - Laboratory Findings CBC and BMP: 05/08/21 06:56 05/09/21 04:59 Abnormal Lab Findings: Abnormal Labs 05/08/21 05/08/21 06:56 06:56 WBC 11.9 H MCHC 31 L Seg Neuts % (Manual) 87.0 H Lymphocytes % (Manual) 5.0 L Seg Neutrophils # Man 10.4 H Lymphocytes # (Manual) 0.6 L Sodium 122 L Chloride 86.1 L Carbon Dioxide 20 L BUN 6 L Creatinine 0.7 L Glucose 117 H Assessment and Plan Assessment and Plan 85 YO Male [facility] Facility Resident with HTN, Vascular Dementia, Cerebral Atherosclerosis, Seizure disorder, HLD, BPH presents to ED for evaluation. Patient is confused with diminished cognition at the time of my evaluation and is unable to provide history. Patient history taken from EMS staff, ED staff, as well as retirement facility staff. As per staff the patient experienced multiple witnessed seizures that lasted for longer than 5 minutes. EMS was notified and upon arrival the patient was found to be in distress and subsequently transported to [facility] for further care and evaluation of the aforementioned symptoms. The patient was seen and evaluated in the emergency department. All lab and imaging studies reviewed. Patient found to have status epilepticus currently in a postictal state, metabolic encephalopat hy, hyponatremia syndrome, metabolic acidosis, accelerated hypertension. Patient admitted to IMCU due to increased risk of worsening symptoms. Patient treated with IV fluid resuscitation therapy, serial sodium monitoring. Patient also found to have first-degree heart block on EKG. Cardiology team consulted in ED. No reports of fever, chills, chest pain, palpitation, productive cough, skin rash, recent contact, known exposure to COVID-19. No prior admission for review. All medication listed at time of admission has been reconciled. Advanced care planning conducted in ED. - Patient Problems # Hyponatremia syndrome -could be contributing factor for seizure -today NA--122---139 -IV fluid resuscitation therapy, serial BMP, neuro check, seizure precautions, aspiration precautions, repeat BMP in a.m., Monitor fluid balance. # Underlying advanced dementia -no behavior problem -check B12 and TSH -EEG -MRI # Status epilepticus # Underlying advanced dementia -witnessed recurrent seizure in NH -Hx of seizure ? and advanced dementia -he bit his tongue -he is with slight right facial droop ? CVA -start on Keppra 500 mg BID -EEG -MRI wo/w gd if possible -Seizure precaution # Metabolic acidosis -IV fluid resuscitation therapy, supportive care. BMP, repeat BMP in a.m. # Hypertensive urgency -Monitor blood pressure every shift, continue oral antihypertensive therapy. # AV block, 1st degree -hold B sandra -Cardiology team consulted, further care and evaluation as per cardiology team # DVT prophylaxis -SCD to bilateral lower extremities while in bed will follow
[2021-05-09] MEDS: METOPROLOL SUCCINATE XL 50 MG TAB PO SCH (09:38)
[2021-05-09] MEDS: levETIRAcetam 500 MG/5 ML ORAL LIQD PO SCH ×2 (09:38→21:44)
[2021-05-09] MEDS: TAMSULOSIN 0.4 MG CAP PO SCH (09:38)
[2021-05-09] MEDS: ASPIRIN EC 81 MG TAB PO SCH (09:39)
[2021-05-09] MEDS: FOLIC ACID 1 MG TAB PO SCH (09:39)
[2021-05-09] MEDS: amLODIPine 10 MG TAB PO SCH (09:39)
[2021-05-09] MEDS: SENNOSIDES 8.6 MG TAB PO SCH ×2 (09:39→21:44)
[2021-05-09] MEDS ORDERED: levETIRAcetam 500 MG/5 ML ORAL LIQD PO SCH (10:00)
[2021-05-09] MEDS: PERPHENAZINE 4 MG TAB PO SCH (11:21)
--- NOTE | 2021-05-09 12:42 | Progress Note ---
Assessment and Plan Patient is a 85-year-old male with a past medical history as of seizure, dementia, hypertension, hyperlipidemia and BPH who was brought to the ED from a skilled nursing for seizure Seizures Hyponatremia Abnormal EKG Dementia HTN Plan: EKG shows sinus 83 with first-degree AV block and sinus pause. No acute ischemic changes Repeat EKG shows sinus rhythm 74 with first-degree AV block, old anterior septal infarct. Sinus pause no longer present Sinus pauses may be result of seizure and hyponatremia. Recommend holding beta-blockers Cardiac status otherwise stable. Will see as needed Patient in conjunction with Dr. Kruse who agrees with this plan of care - Patient Problems (1) AV block, 1st degree Current Visit: Yes Status: Acute (2) Breakthrough seizure Current Visit: Yes Status: Acute (3) Dementia Current Visit: Yes Status: Acute (4) Hyponatremia Current Visit: Yes Status: Acute (5) Tongue laceration Current Visit: Yes Status: Acute Subjective Date of service: 05/09/21 Principal diagnosis: Seizure Interval history: Patient is sitting in bed. Patient is more alert and oriented. However still confused but apparently at baseline Patient not wearing monitor Objective Vital Signs Temp Pulse Pulse Resp BP BP BP 05/09/21 11:00 61 158/75 05/09/21 10:30 158/75 05/09/21 10:00 158/75 05/09/21 09:39 72 158/75 05/09/21 09:38 72 158/75 05/09/21 09:30 66 20 134/86 05/09/21 09:00 79 72 18 146/85 05/09/21 08:44 05/09/21 08:32 177 H 146/85 05/09/21 08:00 98 F 78 17 173/75 05/09/21 07:32 72 05/09/21 07:30 73 13 173/75 05/09/21 07:06 78 170/65 05/09/21 05:00 79 16 170/65 05/09/21 04:46 82 16 05/09/21 04:42 05/09/21 04:00 98.8 F 79 13 157/68 05/09/21 03:30 80 17 157/68 05/09/21 03:06 95 H 19 157/68 05/09/21 01:15 76 16 05/09/21 01:14 99.2 F 76 16 149/74 05/09/21 01:12 118/80 05/09/21 01:01 05/09/21 00:40 75 05/09/21 00:20 99.2 F 05/09/21 00:13 77 24 05/09/21 00:10 14 05/08/21 23:39 98.1 F 90 16 144/79 05/08/21 22:03 76 18 152/65 05/08/21 19:22 98.0 F 84 18 117/94 05/08/21 19:01 18 05/08/21 16:30 22 155/76 05/08/21 16:12 182/83 05/08/21 15:30 81 18 182/83 05/08/21 15:01 05/08/21 14:39 05/08/21 14:00 05/08/21 13:30 87 20 05/08/21 13:00 77 12 176/80 Pulse Ox 05/09/21 11:00 05/09/21 10:30 05/09/21 10:00 05/09/21 09:39 05/09/21 09:38 05/09/21 09:30 05/09/21 09:00 100 05/09/21 08:44 98 05/09/21 08:32 100 05/09/21 08:00 93 05/09/21 07:32 05/09/21 07:30 100 05/09/21 07:06 05/09/21 05:00 05/09/21 04:46 100 05/09/21 04:42 100 05/09/21 04:00 100 05/09/21 03:30 99 05/09/21 03:06 100 05/09/21 01:15 98 05/09/21 01:14 98 05/09/21 01:12 05/09/21 01:01 100 05/09/21 00:40 05/09/21 00:20 05/09/21 00:13 93 05/09/21 00:10 05/08/21 23:39 95 05/08/21 22:03 93 05/08/21 19:22 94 05/08/21 19:01 94 05/08/21 16:30 95 05/08/21 16:12 95 05/08/21 15:30 85 05/08/21 15:01 84 05/08/21 14:39 93 05/08/21 14:00 98 05/08/21 13:30 92 05/08/21 13:00 98 - Physical Examination General: No Apparent Distress HEENT: Positive: PERRL Neck: Positive: trachea midline Cardiac: Positive: Reg Rate and Rhythm Lungs: Positive: Normal Breath Sounds Neuro: Positive: Grossly Intact Abdomen: Positive: Soft Skin: Negative: Rash, Suspicious Lesions, Ulceration Extremities: Present: upper extr. pulses. Absent: edema - Labs and Meds Comprehensive Metabolic Panel 05/09/21 Range/Units 04:59 Sodium 139 D (137-145) mmol/L Potassium 3.6 (3.6-5.0) mmol/L Chloride 104.9 (98-107) mmol/L Carbon Dioxide 22 (22-30) mmol/L BUN 10 (9-20) mg/dL Creatinine 1.0 (0.8-1.3) mg/dL Glucose 93 (75-100) mg/dL Calcium 9.4 (8.4-10.2) mg/dL - Imaging and Cardiology Echo: report reviewed - EKG Sinus rhythms and dysrhythmias: sinus rhythm AV and intraventricular conduction: 1 AV block
--- NOTE | 2021-05-09 14:24 | Progress Note ---
Assessment and Plan Assessment and plan: 85 YO Male [facility] Resident with HTN, Vascular Dementia, Cerebral Atherosclerosis, Seizure disorder, HLD, BPH presents to ED for evaluation. Patient is confused with diminished cognition at the time of my evaluation and is unable to provide history. Patient history taken from EMS staff, ED staff, as well as intermediate facility staff. As per staff the patient experienced multiple witnessed seizures that lasted for longer than 5 minutes. EMS was notified and upon arrival the patient was found to be in distress and subsequently transported to [facility] for further care and evaluation of the aforementioned symptoms. The patient was seen and evaluated in the emergency department. All lab and imaging studies reviewed. Patient found to have status epilepticus currently in a postictal state, metabolic encephalopathy, hyponatremia syndrome, metabolic acidosis, accelerated hypert ension. Patient admitted to [facility] due to increased risk of worsening symptoms. Patient treated with IV fluid resuscitation therapy, serial sodium monitoring. Patient also found to have first-degree heart block on EKG. Cardiology team consulted in ED. No reports of fever, chills, chest pain, palpitation, productive cough, skin rash, recent contact, known exposure to COVID-19. No prior admission for review. All medication listed at time of admission has been reconciled. Advanced care planning conducted in ED. 2: Patient seen and examined this morning clinically improving no further sta tus epilepticus is alert awake sitting up. We will downgrade to telemetry. Agree with cardiology will hold all beta-blockers at this time. If clinically stable in a.m. patient can be discharged I discussed with nursing staff to obtain his home medication list. I also restarted him on his home Keppra. We will continue work-up as prescribed by neurologist to include MRI if able. Sodium has improved, will monitor to ensure not rapid over correction (1) Hyponatremia syndrome Current Visit: Yes Status: Acute Plan to address problem: IV fluid resuscitation therapy, serial BMP, neuro check, seizure precautions, aspiration precautions, repeat BMP in a.m., Monitor fluid balance. (2) Status epilepticus Current Visit: Yes Status: Acute Plan to address problem: Currently in a postictal state, seizure precautions, aspiration precautions, supportive care, Keppra level. Keppra therapy. (3) Metabolic acidosis Current Visit: Yes Status: Acute Plan to address problem: IV fluid resuscitation therapy, supportive care. BMP, repeat BMP in a.m. (4) Hypertensive urgency Current Visit: Yes Status: Acute Plan to address problem: Monitor blood pressure every shift, continue oral antihypertensive therapy. (5) Metabolic encephalopathy Current Visit: Yes Status: Acute Plan to address problem: Neuro check, seizure precautions, supportive care. Aspiration precautions, fall precautions. (6) AV block, 1st degree Current Visit: Yes Status: Acute Plan to address problem: Cardiology team consulted, further care and evaluation as per cardiology team (7) DVT prophylaxis Current Visit: Yes Status: Acute Plan to address problem: SCD to bilateral lower extremities while in bed (8) Advance care planning Current Visit: Yes Status: Acute Plan to address problem: Disease education conducted, care plan discussed, diagnoses discussed, prognosis discussed, patient is full code, +30 minutes. History Interval history: Patient seen and examined this morning very poor historian no new complaints able to follow commands and answer some basic questions but still with some confusion. Hospitalist Physical - Physical exam Narrative exam: VITAL SIGNS: Reviewed. GENERAL: The patient appears normally developed, Vital signs as documented. HEAD: No signs of head trauma. EYES: Pupils are equal. Extraocular motions intact. EARS: Hearing grossly intact. MOUTH: Oropharynx is normal. Mild laceration tongue no overt bleeding noted NECK: No adenopathy, no JVD. CHEST: Chest with clear breath sounds bilaterally. No wheezes, rales, or rhonchi. CARDIAC: Regular rate and rhythm. S1 and S2, without murmurs, gallops, or rubs. VASCULAR: No Edema. Peripheral pulses normal and equal in all extremities. ABDOMEN: Soft, non tender and non distended. No rebound or guarding, and no masses palpated. Bowel Sounds normal. MUSCULOSKELETAL: Good range of motion of all major joints. Extremities without clubbing, cyanosis or edema. NEUROLOGIC EXAM: Alert and oriented x person only no focal sensory or strength deficits. Speech normal. Follows commands. PSYCHIATRIC: Mood normal. SKIN: detail exam as documented in skin assessment - Constitutional Vitals: Temp Pulse Resp BP Pulse Ox 99 F 64 18 158/75 99 05/09/21 12:23 05/09/21 13:30 05/09/21 13:00 05/09/21 13:30 05/09/21 13:00 General appearance: Present: mild distress Results - Labs CBC & Chem 7: 05/08/21 06:56 05/09/21 04:59 Labs: Laboratory Last Values WBC 11.9 K/mm3 (4.5-11.0) H 05/08/21 06:56 RBC 4.49 M/mm3 (3.65-5.03) 05/08/21 06:56 Hgb 12.4 gm/dl (11.8-15.2) 05/08/21 06:56 Hct 39.6 % (35.5-45.6) 05/08/21 06:56 MCV 88 fl (84-94) 05/08/21 06:56 MCH 28 pg (28-32) 05/08/21 06:56 MCHC 31 % (32-34) L 05/08/21 06:56 RDW 14.1 % (13.2-15.2) 05/08/21 06:56 Plt Count 286 K/mm3 (140-440) 05/08/21 06:56 Add Manual Diff Complete 05/08/21 06:56 Total Counted 100 05/08/21 06:56 Seg Neutrophils % Loan Adviser 05/08/21 06:56 Seg Neuts % (Manual) 87.0 % (40.0-70.0) H 05/08/21 06:56 Band Neutrophils % 0 % 05/08/21 06:56 Lymphocytes % (Manual) 5.0 % (13.4-35.0) L 05/08/21 06:56 Reactive Lymphs % (Man) 0 % 05/08/21 06:56 Monocytes % (Manual) 7.0 % (0.0-7.3) 05/08/21 06:56 Eosinophils % (Manual) 1.0 % (0.0-4.3) 05/08/21 06:56 Basophils % (Manual) 0 % (0.0-1.8) 05/08/21 06:56 Metamyelocytes % 0 % 05/08/21 06:56 Myelocytes % 0 % 05/08/21 06:56 Promyelocytes % 0 % 05/08/21 06:56 Blast Cells % 0 % 05/08/21 06:56 Nucleated RBC % Not Reportable 05/08/21 06:56 Seg Neutrophils # Man 10.4 K/mm3 (1.8-7.7) H 05/08/21 06:56 Band Neutrophils # 0.0 K/mm3 05/08/21 06:56 Lymphocytes # (Manual) 0.6 K/mm3 (1.2-5.4) L 05/08/21 06:56 Abs React Lymphs (Man) 0.0 K/mm3 05/08/21 06:56 Monocytes # (Manual) 0.8 K/mm3 (0.0-0.8) 05/08/21 06:56 Eosinophils # (Manual) 0.1 K/mm3 (0.0-0.4) 05/08/21 06:56 Basophils # (Manual) 0.0 K/mm3 (0.0-0.1) 05/08/21 06:56 Metamyelocytes # 0.0 K/mm3 05/08/21 06:56 Myelocytes # 0.0 K/mm3 05/08/21 06:56 Promyelocytes # 0.0 K/mm3 05/08/21 06:56 Blast Cells # 0.0 K/mm3 05/08/21 06:56 WBC Morphology Not Reportable 05/08/21 06:56 Hypersegmented Neuts Not Reportable 05/08/21 06:56 Hyposegmented Neuts Not Reportable 05/08/21 06:56 Hypogranular Neuts Not Reportable 05/08/21 06:56 Smudge Cells Not Reportable 05/08/21 06:56 Toxic Granulation Not Reportable 05/08/21 06:56 Toxic Vacuolation Not Reportable 05/08/21 06:56 Dohle Bodies Not Reportable 05/08/21 06:56 Pelger-Huet Anomaly Not Reportable 05/08/21 06:56 Sondra Rods Not Reportable 05/08/21 06:56 Platelet Estimate Consistent w auto 05/08/21 06:56 Clumped Platelets Not Reportable 05/08/21 06:56 Plt Clumps, EDTA Not Reportable 05/08/21 06:56 Large Platelets Not Reportable 05/08/21 06:56 Giant Platelets Not Reportable 05/08/21 06:56 Platelet Satelliting Not Reportable 05/08/21 06:56 Plt Morphology Comment Not Reportable 05/08/21 06:56 RBC Morphology Normal 05/08/21 06:56 Dimorphic RBCs Not Reportable 05/08/21 06:56 Polychromasia Not Reportable 05/08/21 06:56 Hypochromasia Not Reportable 05/08/21 06:56 Poikilocytosis Not Reportable 05/08/21 06:56 Anisocytosis Not Reportable 05/08/21 06:56 Microcytosis Not Reportable 05/08/21 06:56 Macrocytosis Not Reportable 05/08/21 06:56 Spherocytes Not Reportable 05/08/21 06:56 Pappenheimer Bodies Not Reportable 05/08/21 06:56 Sickle Cells Not Reportable 05/08/21 06:56 Target Cells Not Reportable 05/08/21 06:56 Tear Drop Cells Not Reportable 05/08/21 06:56 Ovalocytes Not Reportable 05/08/21 06:56 Helmet Cells Not Reportable 05/08/21 06:56 Am[place] Bodies Not Reportable 05/08/21 06:56 Kennard Rings Not Reportable 05/08/21 06:56 Casco Cells Not Reportable 05/08/21 06:56 Bite Cells Not Reportable 05/08/21 06:56 Crenated Cell Not Reportable 05/08/21 06:56 Elliptocytes Not Reportable 05/08/21 06:56 Acanthocytes (Spur) Not Reportable 05/08/21 06:56 Rouleaux Not Reportable 05/08/21 06:56 Hemoglobin C Crystals Not Reportable 05/08/21 06:56 Schistocytes Not Reportable 05/08/21 06:56 Malaria parasites Not Reportable 05/08/21 06:56 Joshua Bodies Not Reportable 05/08/21 06:56 Hem Pathologist Commnt No 05/08/21 06:56 Sodium 139 mmol/L (137-145) D 05/09/21 04:59 Potassium 3.6 mmol/L (3.6-5.0) 05/09/21 04:59 Chloride 104.9 mmol/L (98-107) 05/09/21 04:59 Carbon Dioxide 22 mmol/L (22-30) 05/09/21 04:59 Anion Gap 16 mmol/L 05/09/21 04:59 BUN 10 mg/dL (9-20) 05/09/21 04:59 Creatinine 1.0 mg/dL (0.8-1.3) 05/09/21 04:59 Estimated GFR > 60 ml/min 05/09/21 04:59 BUN/Creatinine Ratio 10 % 05/09/21 04:59 Glucose 93 mg/dL (75-100) 05/09/21 04:59 Calcium 9.4 mg/dL (8.4-10.2) 05/09/21 04:59 Magnesium 1.90 mg/dL (1.7-2.3) 05/08/21 06:56 Coronavirus (PCR) Negative (Negative) 05/09/21 Unknown Razo/IV: Voiding Method Urinal Active Medications - Current Medications Current Medications: Generic Name Dose Route Start Last Admin Trade Name Freq PRN Reason Stop Dose Admin Acetaminophen 650 mg 05/08/21 11:48 Acetaminophen 325 Mg Tab PO Q4H PRN Pain MILD(1-3)/Fever >100.5/TALAVERA Albuterol 2.5 mg 05/08/21 11:48 Albuterol 2.5 Mg/3 Ml Nebu IH Q4HRT PRN Shortness Of Breath Amlodipine Besylate 10 mg 05/09/21 10:00 05/09/21 09:39 Amlodipine 10 Mg Tab PO 10 mg DAILY NATALIE Administration Aspirin 81 mg 05/09/21 10:00 05/09/21 09:39 Aspirin Ec 81 Mg Tab PO 81 mg QDAY NATALIE Administration Atorvastatin Calcium 10 mg 05/09/21 22:00 Atorvastatin 10 Mg Tab PO QHS NATALIE Folic Acid 1 mg 05/09/21 10:00 05/09/21 09:39 Folic Acid 1 Mg Tab PO 1 mg QDAY NATALIE Administration Hydromorphone HCl 0.5 mg 05/08/21 11:48 05/08/21 16:30 Hydromorphone 1 Mg/1 Ml Inj IV 0.5 mg Q23H PRN Administration Pain , Severe (7-10) Sodium Chloride 1,000 mls @ 100 mls/hr 05/08/21 12:00 05/09/21 09:39 Nacl 0.9% 1000 Ml IV 100 mls/hr DIRECT NATALIE Administration Levetiracetam 750 mg 05/09/21 10:00 05/09/21 09:38 Levetiracetam 500 Mg/5 Ml Oral Liqd PO 750 mg BID NATALIE Administration Metoprolol Succinate 50 mg 05/09/21 10:00 05/09/21 09:38 Metoprolol Succinate Xl 50 Mg Tab PO 50 mg QDAY NATALIE Administration Ondansetron HCl 4 mg 05/08/21 11:48 Ondansetron 4 Mg/2 Ml Inj IV Q8H PRN Nausea And Vomiting Oxycodone/Acetaminophen 1 tab 05/08/21 11:48 Oxycodone /Acetaminophen 5-325mg Tab PO Q16H PRN Pain, Moderate (4-6) Perphenazine 2 mg 05/09/21 10:00 05/09/21 11:21 Perphenazine 4 Mg Tab PO 2 mg QDAY NATALIE Administration Senna 17.2 mg 05/09/21 10:00 05/09/21 09:39 Sennosides 8.6 Mg Tab PO 17.2 mg BID NATALIE Administration Sodium Chloride 10 ml 05/08/21 22:00 05/09/21 09:44 Sodium Chloride 0.9% 10 Ml Flush Syringe IV 10 ml BID NATALIE Administration Sodium Chloride 10 ml 05/08/21 11:48 Sodium Chloride 0.9% 10 Ml Flush Syringe IV PRN PRN LINE FLUSH Tamsulosin HCl 0.8 mg 05/09/21 10:00 05/09/21 09:38 Tamsulosin 0.4 Mg Cap PO 0.8 mg QDAY NATALIE Administration Nutrition/Malnutrition Assess - Dietary Evaluation Nutrition/Malnutrition Findings: Nutrition Notes Start: 05/09/21 11:03 Freq: Status: Active Protocol: Document 05/09/21 11:03 ELVIRA (Rec: 05/09/21 11:28 ELVIRA [id number]) Nutrition Notes Need for Assessment generated from: MD Order,seat joiner,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 Current Diet Cardiac modified Diet -chopped meats- + D Supplements (since L 05/09). Labs/Tests 05/09: Na 122, Cl 86.1, CO2 20 , BUN 6, Crea 0.7, Glu 117. Pertinent Medications 05/09: NaCl 0.9% 1000 ml @ 100 ml/hr, Folic acid 1 mg/day, others nutritionally unremarkable. Height 5 ft 11 in Weight 83.9 kg [place] Body Weight (kg) 78.18 BMI 25.7 Intake Prior to Admission Good Weight change and time frame Pt states being unsure if lss body weight recently. Weight Status Appropriate Subjective/Other Information RD consult for risk of malnutrition, difficulty chewing, and dietary supplementation assessments. No report available on Pt's PO intake of meals at the time. Pt has missing teeth, according to Physical Assessment History notes. Pt shows no signs of concern for risk of malnutrition at the time, according to Physical Assessment History notes. Pt is SNF resident. Percent of energy/protein needs met: Prescribed Cardiac Diet provides for energy/protein needs (2,230 Kcal/85 g) during LOS; additionally, Dietary Supplements will compensate for possible poor or insufficient PO intake of meals with 1,050 Kcal and 60 g of protein. Burn Absent Trauma Absent GI Symptoms None Difficulty In Chewing Food Allergy No Skin Integrity/Comment Unspecified area of concern. #1 Nutrition Diagnosis Biting/Chewing (masticatory) difficulty Etiology Missing teeth. As Evidenced by Signs and Symptoms Pt has missing teeth, according to Physical Assessment History notes. Is patient on ventilator? No Is Patient Ambulatory and/or Out of Bed Yes REE-([facility]-ambulatory/OOB) [ NUTR.[id number]] Calculation Used for Recommendations [facility] Additional Notes Protein: 1-1.2 g/Kg; 84-101 g/ day. Fluids: 1 ml/Kcal, or as per MD. Nutrition Intervention Change Diet Order: Continue Cardiac modified Diet -chopped meats-. Add Supplement/Snack (indicate name/kcal 8 fl oz Ensure Enlive; TID. /protein ) Provides kCal: 1,050 Provides Protein (gm) 60 Goal #1 Facilitate PO intake of meals with mechanical modification during LOS. Goal #2 Compensate, through dietary supplementation, for possible poor or insufficient PO intake of meals during LOS. Goal #3 Maintain body weight within +/ -3% of admission body weight during LOS. Follow-Up By: 05/16/21 Additional Comments Continue monitoring food tolerance, %PO intake of meals , and BM.
[2021-05-10] MEDS: SODIUM CHLORIDE 0.9% 1000 ML 1,000 ML IV SCH (03:55)
--- NOTE | 2021-05-10 10:08 | Electrocardiograph Report ---
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
--- NOTE | 2021-05-10 10:16 | Electrocardiograph Report ---
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
--- NOTE | 2021-05-10 12:03 | Progress Note ---
Assessment and Plan Assessment and Plan 85 YO [facility] Resident with HTN, Vascular Dementia, Cerebral Atherosclerosis, Seizure disorder, HLD, BPH presents to ED for evaluation. Patient is confused with diminished cognition at the time of my evaluation and is unable to provide history. Patient history taken from EMS staff, ED staff, as well as custodial facility staff. As per staff the patient experienced multiple witnessed seizures that lasted for longer than 5 minutes. EMS was notified and upon arrival the patient was found to be in distress and subsequently transported to [facility] for further care and evaluation of the aforementioned symptoms. The patient was seen and evaluated in the emergency department. All lab and imaging studies reviewed. Patient found to have status epilepticus currently in a postictal state, metabolic encephalopathy, hyponatremia syndrome, metabolic acidosis, accelerated hypertension. Patient admitted to [facility] due to increased risk of worsening symptoms. Patient treated with IV fluid resuscitation therapy, serial sodium monitoring. Patient also found to have first-degree heart block on EKG. Cardiology team consulted in ED. No reports of fever, chills, chest pain, palpitation, productive cough, skin rash, recent contact, known exposure to COVID-19. No prior admission for review. All medication listed at time of admission has been reconciled. Advanced care planning conducted in ED. - Patient Problems # Hyponatremia syndrome -could be contributing factor for seizure -today NA--122---139 -IV fluid resuscitation therapy, serial BMP, neuro check, seizure precautions, aspiration precautions, repeat BMP in a.m., Monitor fluid balance. # Underlying advanced dementia -no behavior problem -check B12 and TSH -EEG is remarkable for mild slowing -MRI Brain is pending # Status epilepticus # Underlying advanced dementia -witnessed recurrent seizure in NH -Hx of seizure ? and advanced dementia -he bit his tongue -he is with slight right facial droop ? CVA -start on Keppra 500 mg BID -MRI wo/w gd if possible -Seizure precaution # Metabolic acidosis -IV fluid resuscitation therapy, supportive care. BMP, repeat BMP in a.m. # Hypertensive urgency -Monitor blood pressure every shift, continue oral antihypertensive therapy. # AV block, 1st degree -hold B sandra -Cardiology team consulted, further care and evaluation as per cardiology team # DVT prophylaxis -SCD to bilateral lower extremities while in bed will follow as needed Subjective Date of service: 05/10/21 Principal diagnosis: Seizure Interval history: alert interactive no complain MRI brain is pending CT brain is noted on ASA and Lipitor Objective - Vital Sign Vital Signs - 12hr 05/10/21 05/10/21 05/10/21 00:05 08:33 10:59 Temperature 98.3 F 97.7 F 97.9 F Pulse Rate 64 61 Respiratory 18 18 18 Rate Blood Pressure 167/65 168/77 154/61 O2 Sat by Pulse 98 100 Oximetry - General Apperance Constitutional: comfortable - EENT EENT: PERRL, mucous membranes moist - Respiratory Respiratory: lungs clear, rhonchi - Cardiovascular Cardiovascular: regular rate, normal S1, normal S2 Extremities: no peripheral edema bilat, no clubbing, cyanosis - Gastrointestinal Gastrointestinal: normoactive bowel sounds - Integumentary Integumentary: normal - Neurologic Cranial nerve examination: PERRL, EOMI, intact Speech examination: intact Detailed motor examination: grossly full strength in - Laboratory Findings CBC and BMP: 05/08/21 06:56 05/10/21 09:33 Abnormal Lab Findings: Abnormal Labs 05/08/21 05/08/21 06:56 06:56 WBC 11.9 H MCHC 31 L Seg Neuts % (Manual) 87.0 H Lymphocytes % (Manual) 5.0 L Seg Neutrophils # Man 10.4 H Lymphocytes # (Manual) 0.6 L Sodium 122 L Chloride 86.1 L Carbon Dioxide 20 L BUN 6 L Creatinine 0.7 L Glucose 117 H
--- NOTE | 2021-05-10 12:53 | Progress Note ---
Assessment and Plan Assessment and plan: #Hyponatremia -Improved with IV resuscitation, sodium 142 -will discontinue IV fluids #Hypertensive urgency -Blood pressure controlled, continue amlodipine #Status epilepticus -Continue Keppra -MRI pending -Neurology following, assistance appreciated #Acute metabolic encephalopathy -Resolved -Likely secondary to seizure and hyponatremia -Patient with underlying cognitive impairment #AV first-degree block -Seen on EKG -Beta-sandra held -Cardiology evaluated patient, no further recommendations #Metabolic acidosis -Resolved #Vascular dementia -Continue ASA plus statin #BPH -Continue Flomax History Interval history: No acute events overnight. Patient denies chest pain, shortness of breath, palpitations or any discomfort. Did not remember if he ate breakfast or not. Easily redirectable. He has no other complaints at this time Hospitalist Physical - Physical exam Narrative exam: GENERAL: Well-developed well-nourished. Sitting in a chair, in no acute distress. HEENT: Normocephalic. Atraumatic. NECK: Supple. CHEST/LUNGS: CTAB on room air HEART/CARDIOVASCULAR: RRR. No murmur, rubs or gallops appreciated. ABDOMEN: +BS. NT/ND. SKIN: No rashes noted. NEURO: No focal motor deficit. Follows all commands. MUSCULOSKELETAL: No joint effusion EXTREMITIES: No cyanosis, clubbing or edema. PSYCH: Cooperative. Pleasantly confused. - Constitutional Vitals: Temp Pulse Resp BP Pulse Ox 97.9 F 61 18 154/61 100 05/10/21 10:59 05/10/21 08:33 05/10/21 10:59 05/10/21 10:59 05/10/21 08:33 General appearance: Present: mild distress Results - Labs CBC & Chem 7: 05/08/21 06:56 05/10/21 09:33 Labs: Laboratory Last Values WBC 11.9 K/mm3 (4.5-11.0) H 05/08/21 06:56 RBC 4.49 M/mm3 (3.65-5.03) 05/08/21 06:56 Hgb 12.4 gm/dl (11.8-15.2) 05/08/21 06:56 Hct 39.6 % (35.5-45.6) 05/08/21 06:56 MCV 88 fl (84-94) 05/08/21 06:56 MCH 28 pg (28-32) 05/08/21 06:56 MCHC 31 % (32-34) L 05/08/21 06:56 RDW 14.1 % (13.2-15.2) 05/08/21 06:56 Plt Count 286 K/mm3 (140-440) 05/08/21 06:56 Add Manual Diff Complete 05/08/21 06:56 Total Counted 100 05/08/21 06:56 Seg Neutrophils % Senior Marketing Coordinator 05/08/21 06:56 Seg Neuts % (Manual) 87.0 % (40.0-70.0) H 05/08/21 06:56 Band Neutrophils % 0 % 05/08/21 06:56 Lymphocytes % (Manual) 5.0 % (13.4-35.0) L 05/08/21 06:56 Reactive Lymphs % (Man) 0 % 05/08/21 06:56 Monocytes % (Manual) 7.0 % (0.0-7.3) 05/08/21 06:56 Eosinophils % (Manual) 1.0 % (0.0-4.3) 05/08/21 06:56 Basophils % (Manual) 0 % (0.0-1.8) 05/08/21 06:56 Metamyelocytes % 0 % 05/08/21 06:56 Myelocytes % 0 % 05/08/21 06:56 Promyelocytes % 0 % 05/08/21 06:56 Blast Cells % 0 % 05/08/21 06:56 Nucleated RBC % Not Reportable 05/08/21 06:56 Seg Neutrophils # Man 10.4 K/mm3 (1.8-7.7) H 05/08/21 06:56 Band Neutrophils # 0.0 K/mm3 05/08/21 06:56 Lymphocytes # (Manual) 0.6 K/mm3 (1.2-5.4) L 05/08/21 06:56 Abs React Lymphs (Man) 0.0 K/mm3 05/08/21 06:56 Monocytes # (Manual) 0.8 K/mm3 (0.0-0.8) 05/08/21 06:56 Eosinophils # (Manual) 0.1 K/mm3 (0.0-0.4) 05/08/21 06:56 Basophils # (Manual) 0.0 K/mm3 (0.0-0.1) 05/08/21 06:56 Metamyelocytes # 0.0 K/mm3 05/08/21 06:56 Myelocytes # 0.0 K/mm3 05/08/21 06:56 Promyelocytes # 0.0 K/mm3 05/08/21 06:56 Blast Cells # 0.0 K/mm3 05/08/21 06:56 WBC Morphology Not Reportable 05/08/21 06:56 Hypersegmented Neuts Not Reportable 05/08/21 06:56 Hyposegmented Neuts Not Reportable 05/08/21 06:56 Hypogranular Neuts Not Reportable 05/08/21 06:56 Smudge Cells Not Reportable 05/08/21 06:56 Toxic Granulation Not Reportable 05/08/21 06:56 Toxic Vacuolation Not Reportable 05/08/21 06:56 Dohle Bodies Not Reportable 05/08/21 06:56 Pelger-Huet Anomaly Not Reportable 05/08/21 06:56 Sondra Rods Not Reportable 05/08/21 06:56 Platelet Estimate Consistent w auto 05/08/21 06:56 Clumped Platelets Not Reportable 05/08/21 06:56 Plt Clumps, EDTA Not Reportable 05/08/21 06:56 Large Platelets Not Reportable 05/08/21 06:56 Giant Platelets Not Reportable 05/08/21 06:56 Platelet Satelliting Not Reportable 05/08/21 06:56 Plt Morphology Comment Not Reportable 05/08/21 06:56 RBC Morphology Normal 05/08/21 06:56 Dimorphic RBCs Not Reportable 05/08/21 06:56 Polychromasia Not Reportable 05/08/21 06:56 Hypochromasia Not Reportable 05/08/21 06:56 Poikilocytosis Not Reportable 05/08/21 06:56 Anisocytosis Not Reportable 05/08/21 06:56 Microcytosis Not Reportable 05/08/21 06:56 Macrocytosis Not Reportable 05/08/21 06:56 Spherocytes Not Reportable 05/08/21 06:56 Pappenheimer Bodies Not Reportable 05/08/21 06:56 Sickle Cells Not Reportable 05/08/21 06:56 Target Cells Not Reportable 05/08/21 06:56 Tear Drop Cells Not Reportable 05/08/21 06:56 Ovalocytes Not Reportable 05/08/21 06:56 Helmet Cells Not Reportable 05/08/21 06:56 Amado-[place] Bodies Not Reportable 05/08/21 06:56 [place] Rings Not Reportable 05/08/21 06:56 [place] Cells Not Reportable 05/08/21 06:56 Bite Cells Not Reportable 05/08/21 06:56 Crenated Cell Not Reportable 05/08/21 06:56 Elliptocytes Not Reportable 05/08/21 06:56 Acanthocytes (Spur) Not Reportable 05/08/21 06:56 Rouleaux Not Reportable 05/08/21 06:56 Hemoglobin C Crystals Not Reportable 05/08/21 06:56 Schistocytes Not Reportable 05/08/21 06:56 Malaria parasites Not Reportable 05/08/21 06:56 Joshua Bodies Not Reportable 05/08/21 06:56 Hem Pathologist Commnt No 05/08/21 06:56 Sodium 142 mmol/L (137-145) 05/10/21 09:33 Potassium 3.6 mmol/L (3.6-5.0) 05/09/21 04:59 Chloride 104.9 mmol/L (98-107) 05/09/21 04:59 Carbon Dioxide 22 mmol/L (22-30) 05/09/21 04:59 Anion Gap 16 mmol/L 05/09/21 04:59 BUN 10 mg/dL (9-20) 05/09/21 04:59 Creatinine 1.0 mg/dL (0.8-1.3) 05/09/21 04:59 Estimated GFR > 60 ml/min 05/09/21 04:59 BUN/Creatinine Ratio 10 % 05/09/21 04:59 Glucose 93 mg/dL (75-100) 05/09/21 04:59 Calcium 9.4 mg/dL (8.4-10.2) 05/09/21 04:59 Magnesium 1.90 mg/dL (1.7-2.3) 05/08/21 06:56 Nasal Screen MRSA (PCR) Negative (Negative) 05/09/21 06:30 Coronavirus (PCR) Negative (Negative) 05/09/21 Unknown Razo/IV: Voiding Method Urinal Active Medications - Current Medications Current Medications: Generic Name Dose Route Start Last Admin Trade Name Freq PRN Reason Stop Dose Admin Acetaminophen 650 mg 05/08/21 11:48 Acetaminophen 325 Mg Tab PO Q4H PRN Pain MILD(1-3)/Fever >100.5/TALAVERA Albuterol 2.5 mg 05/08/21 11:48 Albuterol 2.5 Mg/3 Ml Nebu IH Q4HRT PRN Shortness Of Breath Amlodipine Besylate 10 mg 05/09/21 10:00 05/09/21 09:39 Amlodipine 10 Mg Tab PO 10 mg DAILY NATALIE Administration Aspirin 81 mg 05/09/21 10:00 05/09/21 09:39 Aspirin Ec 81 Mg Tab PO 81 mg QDAY NATALIE Administration Atorvastatin Calcium 10 mg 05/09/21 22:00 05/09/21 21:44 Atorvastatin 10 Mg Tab PO 10 mg QHS NATALIE Administration Folic Acid 1 mg 05/09/21 10:00 05/09/21 09:39 Folic Acid 1 Mg Tab PO 1 mg QDAY NATALIE Administration Hydromorphone HCl 0.5 mg 05/08/21 11:48 05/08/21 16:30 Hydromorphone 1 Mg/1 Ml Inj IV 0.5 mg Q23H PRN Administration Pain , Severe (7-10) Sodium Chloride 1,000 mls @ 100 mls/hr 05/08/21 12:00 05/10/21 03:55 Nacl 0.9% 1000 Ml IV 100 mls/hr DIRECT NATALIE Administration Levetiracetam 750 mg 05/09/21 10:00 05/09/21 21:44 Levetiracetam 500 Mg/5 Ml Oral Liqd PO 750 mg BID NATALIE Administration Metoprolol Succinate 50 mg 05/09/21 10:00 05/09/21 09:38 Metoprolol Succinate Xl 50 Mg Tab PO 50 mg QDAY NATALIE Administration Ondansetron HCl 4 mg 05/08/21 11:48 Ondansetron 4 Mg/2 Ml Inj IV Q8H PRN Nausea And Vomiting Oxycodone/Acetaminophen 1 tab 05/08/21 11:48 Oxycodone /Acetaminophen 5-325mg Tab PO Q16H PRN Pain, Moderate (4-6) Perphenazine 2 mg 05/09/21 10:00 05/09/21 11:21 Perphenazine 4 Mg Tab PO 2 mg QDAY NATALIE Administration Senna 17.2 mg 05/09/21 10:00 05/09/21 21:44 Sennosides 8.6 Mg Tab PO 17.2 mg BID NATALIE Administration Sodium Chloride 10 ml 05/08/21 22:00 05/09/21 09:44 Sodium Chloride 0.9% 10 Ml Flush Syringe IV 10 ml BID NATALIE Administration Sodium Chloride 10 ml 05/08/21 11:48 Sodium Chloride 0.9% 10 Ml Flush Syringe IV PRN PRN LINE FLUSH Tamsulosin HCl 0.8 mg 05/09/21 10:00 05/09/21 09:38 Tamsulosin 0.4 Mg Cap PO 0.8 mg QDAY NATALIE Administration Nutrition/Malnutrition Assess - Dietary Evaluation Nutrition/Malnutrition Findings: Nutrition Notes Start: 05/09/21 11:03 Freq: Status: Active Protocol: Document 05/09/21 11:03 ELVIRA (Rec: 05/09/21 11:28 ELVIRA [id number]) Nutrition Notes Need for Assessment generated from: MD Order,dental chair assembler,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 Current Diet Cardiac modified Diet -chopped meats- + D Supplements (since L 05/09). Labs/Tests 05/09: Na 122, Cl 86.1, CO2 20 , BUN 6, Crea 0.7, Glu 117. Pertinent Medications 05/09: NaCl 0.9% 1000 ml @ 100 ml/hr, Folic acid 1 mg/day, others nutritionally unremarkable. Height 5 ft 11 in Weight 83.9 kg [place] Body Weight (kg) 78.18 BMI 25.7 Intake Prior to Admission Good Weight change and time frame Pt states being unsure if lss body weight recently. Weight Status Appropriate Subjective/Other Information RD consult for risk of malnutrition, difficulty chewing, and dietary supplementation assessments. No report available on Pt's PO intake of meals at the time. Pt has missing teeth, according to Physical Assessment History notes. Pt shows no signs of concern for risk of malnutrition at the time, according to Physical Assessment History notes. Pt is SNF resident. Percent of energy/protein needs met: Prescribed Cardiac Diet provides for energy/protein needs (2,230 Kcal/85 g) during LOS; additionally, Dietary Supplements will compensate for possible poor or insufficient PO intake of meals with 1,050 Kcal and 60 g of protein. Burn Absent Trauma Absent GI Symptoms None Difficulty In Chewing Food Allergy No Skin Integrity/Comment Unspecified area of concern. #1 Nutrition Diagnosis Biting/Chewing (masticatory) difficulty Etiology Missing teeth. As Evidenced by Signs and Symptoms Pt has missing teeth, according to Physical Assessment History notes. Is patient on ventilator? No Is Patient Ambulatory and/or Out of Bed Yes REE-([place]-St. Jeor-ambulatory/OOB) [ NUTR.[id number]] Calculation Used for Recommendations [facility] Additional Notes Protein: 1-1.2 g/Kg; 84-101 g/ day. Fluids: 1 ml/Kcal, or as per MD. Nutrition Intervention Change Diet Order: Continue Cardiac modified Diet -chopped meats-. Add Supplement/Snack (indicate name/kcal 8 fl oz Ensure Enlive; TID. /protein ) Provides kCal: 1,050 Provides Protein (gm) 60 Goal #1 Facilitate PO intake of meals with mechanical modification during LOS. Goal #2 Compensate, through dietary supplementation, for possible poor or insufficient PO intake of meals during LOS. Goal #3 Maintain body weight within +/ -3% of admission body weight during LOS. Follow-Up By: 05/16/21 Additional Comments Continue monitoring food tolerance, %PO intake of meals , and BM.
[2021-05-10] MEDS ORDERED: LORazepam 2 MG/ML VIAL IV SCH (15:30)
[2021-05-10] MEDS: levETIRAcetam 500 MG/5 ML ORAL LIQD PO SCH ×3 (17:21→21:28)
[2021-05-10] MEDS: ASPIRIN EC 81 MG TAB PO SCH (17:24)
[2021-05-10] MEDS: TAMSULOSIN 0.4 MG CAP PO SCH (17:24)
[2021-05-10] MEDS: amLODIPine 10 MG TAB PO SCH (17:25)
[2021-05-10] MEDS: SENNOSIDES 8.6 MG TAB PO SCH ×2 (17:27→21:27)
[2021-05-10] MEDS: FOLIC ACID 1 MG TAB PO SCH (17:29)
[2021-05-10] MEDS: METOPROLOL SUCCINATE XL 50 MG TAB PO SCH (17:31)
[2021-05-10] MEDS: PERPHENAZINE 4 MG TAB PO SCH ×2 (17:32→21:27)
[2021-05-11] MEDS: levETIRAcetam 500 MG/5 ML ORAL LIQD PO SCH ×2 (09:30→21:45)
[2021-05-11] MEDS: TAMSULOSIN 0.4 MG CAP PO SCH (09:30)
[2021-05-11] MEDS: ASPIRIN EC 81 MG TAB PO SCH (09:30)
[2021-05-11] MEDS: SENNOSIDES 8.6 MG TAB PO SCH ×2 (09:30→21:45)
[2021-05-11] MEDS: amLODIPine 10 MG TAB PO SCH (09:30)
[2021-05-11] MEDS: FOLIC ACID 1 MG TAB PO SCH (09:30)
[2021-05-11] MEDS ORDERED: LORazepam 2 MG/ML VIAL IV ONE (12:40)
--- NOTE | 2021-05-11 15:22 | Progress Note ---
Assessment and Plan Assessment and plan: #Status epilepticus -Continue Keppra -MRI ordered, unable to be completed due to patient agitation despite being given ativan x2 -will discuss with Neurology if MRI is required -Neurology following, assistance appreciated #Acute metabolic encephalopathy -Resolved -Likely secondary to seizure and hyponatremia -Patient with underlying cognitive impairment #AV first-degree block -Seen on EKG -Beta-sandra held -Cardiology evaluated patient, no further recommendations #Hyponatremia-resolved -Improved with IV resuscitation #Hypertensive urgency -Blood pressure controlled, continue amlodipine #Metabolic acidosis -Resolved #Vascular dementia -Continue ASA plus statin #BPH -Continue Flomax History Interval history: No acute events overnight. Patient pleasantly confused. Only complaint is he would like more food. Hospitalist Physical - Physical exam Narrative exam: GENERAL: Well-developed well-nourished. Sitting in a chair, in no acute distress. HEENT: Normocephalic. Atraumatic. NECK: Supple. CHEST/LUNGS: CTAB on room air HEART/CARDIOVASCULAR: RRR. No murmur, rubs or gallops appreciated. ABDOMEN: +BS. NT/ND. SKIN: No rashes noted. NEURO: No focal motor deficit. Follows all commands. MUSCULOSKELETAL: No joint effusion EXTREMITIES: No cyanosis, clubbing or edema. PSYCH: Cooperative. Pleasantly confused. - Constitutional Vitals: Temp Pulse Resp BP Pulse Ox 98.0 F 69 18 130/61 100 05/11/21 11:52 05/11/21 11:52 05/11/21 11:52 05/11/21 11:52 05/11/21 11:52 General appearance: Present: mild distress Results - Labs CBC & Chem 7: 05/08/21 06:56 05/10/21 09:33 Labs: Laboratory Last Values WBC 11.9 K/mm3 (4.5-11.0) H 05/08/21 06:56 RBC 4.49 M/mm3 (3.65-5.03) 05/08/21 06:56 Hgb 12.4 gm/dl (11.8-15.2) 05/08/21 06:56 Hct 39.6 % (35.5-45.6) 05/08/21 06:56 MCV 88 fl (84-94) 05/08/21 06:56 MCH 28 pg (28-32) 05/08/21 06:56 MCHC 31 % (32-34) L 05/08/21 06:56 RDW 14.1 % (13.2-15.2) 05/08/21 06:56 Plt Count 286 K/mm3 (140-440) 05/08/21 06:56 Add Manual Diff Complete 05/08/21 06:56 Total Counted 100 05/08/21 06:56 Seg Neutrophils % B2B Sales Consultant 05/08/21 06:56 Seg Neuts % (Manual) 87.0 % (40.0-70.0) H 05/08/21 06:56 Band Neutrophils % 0 % 05/08/21 06:56 Lymphocytes % (Manual) 5.0 % (13.4-35.0) L 05/08/21 06:56 Reactive Lymphs % (Man) 0 % 05/08/21 06:56 Monocytes % (Manual) 7.0 % (0.0-7.3) 05/08/21 06:56 Eosinophils % (Manual) 1.0 % (0.0-4.3) 05/08/21 06:56 Basophils % (Manual) 0 % (0.0-1.8) 05/08/21 06:56 Metamyelocytes % 0 % 05/08/21 06:56 Myelocytes % 0 % 05/08/21 06:56 Promyelocytes % 0 % 05/08/21 06:56 Blast Cells % 0 % 05/08/21 06:56 Nucleated RBC % Not Reportable 05/08/21 06:56 Seg Neutrophils # Man 10.4 K/mm3 (1.8-7.7) H 05/08/21 06:56 Band Neutrophils # 0.0 K/mm3 05/08/21 06:56 Lymphocytes # (Manual) 0.6 K/mm3 (1.2-5.4) L 05/08/21 06:56 Abs React Lymphs (Man) 0.0 K/mm3 05/08/21 06:56 Monocytes # (Manual) 0.8 K/mm3 (0.0-0.8) 05/08/21 06:56 Eosinophils # (Manual) 0.1 K/mm3 (0.0-0.4) 05/08/21 06:56 Basophils # (Manual) 0.0 K/mm3 (0.0-0.1) 05/08/21 06:56 Metamyelocytes # 0.0 K/mm3 05/08/21 06:56 Myelocytes # 0.0 K/mm3 05/08/21 06:56 Promyelocytes # 0.0 K/mm3 05/08/21 06:56 Blast Cells # 0.0 K/mm3 05/08/21 06:56 WBC Morphology Not Reportable 05/08/21 06:56 Hypersegmented Neuts Not Reportable 05/08/21 06:56 Hyposegmented Neuts Not Reportable 05/08/21 06:56 Hypogranular Neuts Not Reportable 05/08/21 06:56 Smudge Cells Not Reportable 05/08/21 06:56 Toxic Granulation Not Reportable 05/08/21 06:56 Toxic Vacuolation Not Reportable 05/08/21 06:56 Dohle Bodies Not Reportable 05/08/21 06:56 Pelger-Huet Anomaly Not Reportable 05/08/21 06:56 Sondra Rods Not Reportable 05/08/21 06:56 Platelet Estimate Consistent w auto 05/08/21 06:56 Clumped Platelets Not Reportable 05/08/21 06:56 Plt Clumps, EDTA Not Reportable 05/08/21 06:56 Large Platelets Not Reportable 05/08/21 06:56 Giant Platelets Not Reportable 05/08/21 06:56 Platelet Satelliting Not Reportable 05/08/21 06:56 Plt Morphology Comment Not Reportable 05/08/21 06:56 RBC Morphology Normal 05/08/21 06:56 Dimorphic RBCs Not Reportable 05/08/21 06:56 Polychromasia Not Reportable 05/08/21 06:56 Hypochromasia Not Reportable 05/08/21 06:56 Poikilocytosis Not Reportable 05/08/21 06:56 Anisocytosis Not Reportable 05/08/21 06:56 Microcytosis Not Reportable 05/08/21 06:56 Macrocytosis Not Reportable 05/08/21 06:56 Spherocytes Not Reportable 05/08/21 06:56 Pappenheimer Bodies Not Reportable 05/08/21 06:56 Sickle Cells Not Reportable 05/08/21 06:56 Target Cells Not Reportable 05/08/21 06:56 Tear Drop Cells Not Reportable 05/08/21 06:56 Ovalocytes Not Reportable 05/08/21 06:56 Helmet Cells Not Reportable 05/08/21 06:56 Amado-[place] Bodies Not Reportable 05/08/21 06:56 [place] Rings Not Reportable 05/08/21 06:56 [place] Cells Not Reportable 05/08/21 06:56 Bite Cells Not Reportable 05/08/21 06:56 Crenated Cell Not Reportable 05/08/21 06:56 Elliptocytes Not Reportable 05/08/21 06:56 Acanthocytes (Spur) Not Reportable 05/08/21 06:56 Rouleaux Not Reportable 05/08/21 06:56 Hemoglobin C Crystals Not Reportable 05/08/21 06:56 Schistocytes Not Reportable 05/08/21 06:56 Malaria parasites Not Reportable 05/08/21 06:56 Joshua Bodies Not Reportable 05/08/21 06:56 Hem Pathologist Commnt No 05/08/21 06:56 Sodium 142 mmol/L (137-145) 05/10/21 09:33 Potassium 3.6 mmol/L (3.6-5.0) 05/09/21 04:59 Chloride 104.9 mmol/L (98-107) 05/09/21 04:59 Carbon Dioxide 22 mmol/L (22-30) 05/09/21 04:59 Anion Gap 16 mmol/L 05/09/21 04:59 BUN 10 mg/dL (9-20) 05/09/21 04:59 Creatinine 1.0 mg/dL (0.8-1.3) 05/09/21 04:59 Estimated GFR > 60 ml/min 05/09/21 04:59 BUN/Creatinine Ratio 10 % 05/09/21 04:59 Glucose 93 mg/dL (75-100) 05/09/21 04:59 Calcium 9.4 mg/dL (8.4-10.2) 05/09/21 04:59 Magnesium 1.90 mg/dL (1.7-2.3) 05/08/21 06:56 Nasal Screen MRSA (PCR) Negative (Negative) 05/09/21 06:30 Coronavirus (PCR) Negative (Negative) 05/09/21 Unknown Razo/IV: Voiding Method Urinal Active Medications - Current Medications Current Medications: Generic Name Dose Route Start Last Admin Trade Name Freq PRN Reason Stop Dose Admin Acetaminophen 650 mg 05/08/21 11:48 Acetaminophen 325 Mg Tab PO Q4H PRN Pain MILD(1-3)/Fever >100.5/TALAVERA Albuterol 2.5 mg 05/08/21 11:48 Albuterol 2.5 Mg/3 Ml Nebu IH Q4HRT PRN Shortness Of Breath Amlodipine Besylate 10 mg 05/09/21 10:00 05/11/21 09:30 Amlodipine 10 Mg Tab PO 10 mg DAILY NATALIE Administration Aspirin 81 mg 05/09/21 10:00 05/11/21 09:30 Aspirin Ec 81 Mg Tab PO 81 mg QDAY NATALIE Administration Atorvastatin Calcium 10 mg 05/09/21 22:00 05/10/21 21:27 Atorvastatin 10 Mg Tab PO 10 mg QHS NATALIE Administration Folic Acid 1 mg 05/09/21 10:00 05/11/21 09:30 Folic Acid 1 Mg Tab PO 1 mg QDAY NATALIE Administration Hydromorphone HCl 0.5 mg 05/08/21 11:48 05/08/21 16:30 Hydromorphone 1 Mg/1 Ml Inj IV 0.5 mg Q23H PRN Administration Pain , Severe (7-10) Levetiracetam 500 mg 05/10/21 16:00 05/11/21 09:30 Levetiracetam 500 Mg/5 Ml Oral Liqd PO 500 mg BID NATALIE Administration Ondansetron HCl 4 mg 05/08/21 11:48 Ondansetron 4 Mg/2 Ml Inj IV Q8H PRN Nausea And Vomiting Oxycodone/Acetaminophen 1 tab 05/08/21 11:48 Oxycodone /Acetaminophen 5-325mg Tab PO Q16H PRN Pain, Moderate (4-6) Perphenazine 6 mg 05/10/21 22:00 05/10/21 21:27 Perphenazine 4 Mg Tab PO 6 mg HS NATALIE Administration Senna 17.2 mg 05/09/21 10:00 05/11/21 09:30 Sennosides 8.6 Mg Tab PO 17.2 mg BID NATALIE Administration Sodium Chloride 10 ml 05/08/21 22:00 05/11/21 09:30 Sodium Chloride 0.9% 10 Ml Flush Syringe IV 10 ml BID NATALIE Administration Sodium Chloride 10 ml 05/08/21 11:48 Sodium Chloride 0.9% 10 Ml Flush Syringe IV PRN PRN LINE FLUSH Tamsulosin HCl 0.8 mg 05/09/21 10:00 05/11/21 09:30 Tamsulosin 0.4 Mg Cap PO 0.8 mg QDAY NATALIE Administration Nutrition/Malnutrition Assess - Dietary Evaluation Nutrition/Malnutrition Findings: Nutrition Notes Start: 05/09/21 11:03 Freq: Status: Active Protocol: Document 05/09/21 11:03 ELVIRA (Rec: 05/09/21 11:28 ELVIRA [id number]) Nutrition Notes Need for Assessment generated from: MD Order,cable repairer,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 Current Diet Cardiac modified Diet -chopped meats- + D Supplements (since L 05/09). Labs/Tests 05/09: Na 122, Cl 86.1, CO2 20 , BUN 6, Crea 0.7, Glu 117. Pertinent Medications 05/09: NaCl 0.9% 1000 ml @ 100 ml/hr, Folic acid 1 mg/day, others nutritionally unremarkable. Height 5 ft 11 in Weight 83.9 kg [place] Body Weight (kg) 78.18 BMI 25.7 Intake Prior to Admission Good Weight change and time frame Pt states being unsure if lss body weight recently. Weight Status Appropriate Subjective/Other Information RD consult for risk of malnutrition, difficulty chewing, and dietary supplementation assessments. No report available on Pt's PO intake of meals at the time. Pt has missing teeth, according to Physical Assessment History notes. Pt shows no signs of concern for risk of malnutrition at the time, according to Physical Assessment History notes. Pt is SNF resident. Percent of energy/protein needs met: Prescribed Cardiac Diet provides for energy/protein needs (2,230 Kcal/85 g) during LOS; additionally, Dietary Supplements will compensate for possible poor or insufficient PO intake of meals with 1,050 Kcal and 60 g of protein. Burn Absent Trauma Absent GI Symptoms None Difficulty In Chewing Food Allergy No Skin Integrity/Comment Unspecified area of concern. #1 Nutrition Diagnosis Biting/Chewing (masticatory) difficulty Etiology Missing teeth. As Evidenced by Signs and Symptoms Pt has missing teeth, according to Physical Assessment History notes. Is patient on ventilator? No Is Patient Ambulatory and/or Out of Bed Yes REE-([facility]-ambulatory/OOB) [ NUTR.MSJOOB] Calculation Used for Recommendations [facility] Additional Notes Protein: 1-1.2 g/Kg; 84-101 g/ day. Fluids: 1 ml/Kcal, or as per MD. Nutrition Intervention Change Diet Order: Continue Cardiac modified Diet -chopped meats-. Add Supplement/Snack (indicate name/kcal 8 fl oz Ensure Enlive; TID. /protein ) Provides kCal: 1,050 Provides Protein (gm) 60 Goal #1 Facilitate PO intake of meals with mechanical modification during LOS. Goal #2 Compensate, through dietary supplementation, for possible poor or insufficient PO intake of meals during LOS. Goal #3 Maintain body weight within +/ -3% of admission body weight during LOS. Follow-Up By: 05/16/21 Additional Comments Continue monitoring food tolerance, %PO intake of meals , and BM.
[2021-05-11] MEDS: PERPHENAZINE 4 MG TAB PO SCH (21:45)
[2021-05-12] MEDS ORDERED: LORazepam 2 MG TAB PO SCH (09:00)
[2021-05-12] MEDS: TAMSULOSIN 0.4 MG CAP PO SCH (09:11)
[2021-05-12] MEDS: levETIRAcetam 500 MG/5 ML ORAL LIQD PO SCH ×2 (09:12→21:37)
[2021-05-12] MEDS: SENNOSIDES 8.6 MG TAB PO SCH ×2 (09:12→21:37)
[2021-05-12] MEDS: ASPIRIN EC 81 MG TAB PO SCH (09:12)
[2021-05-12] MEDS: FOLIC ACID 1 MG TAB PO SCH (09:12)
[2021-05-12] MEDS: amLODIPine 10 MG TAB PO SCH (09:12)
[2021-05-12] MEDS ORDERED: HALOPERIDOL LACTATE 5 MG/1 ML INJ IM ONE (15:33)
--- NOTE | 2021-05-12 15:33 | Progress Note ---
Assessment and Plan Assessment and plan: #Status epilepticus -Continue Keppra -MRI ordered, unable to be completed due to patient agitation despite being given ativan x2; will attempt once more -will discuss with Neurology if MRI is required #Acute metabolic encephalopathy -Resolved -Likely secondary to seizure and hyponatremia -Patient with underlying cognitive impairment #AV first-degree block -Seen on EKG -Beta-sandra held -Cardiology evaluated patient, no further recommendations #Hyponatremia-resolved -Improved with IV resuscitation #Hypertensive urgency -Blood pressure controlled, continue amlodipine #Metabolic acidosis -Resolved #Vascular dementia -Continue ASA plus statin #BPH -Continue Flomax Disposition Plan: discharge to home History Interval history: No acute events overnight. Patient pleasantly confused. He has no complaints at this time. Hospitalist Physical - Physical exam Narrative exam: GENERAL: Well-developed well-nourished. In no acute distress. HEENT: Normocephalic. Atraumatic. CHEST/LUNGS: CTAB on room air HEART/CARDIOVASCULAR: RRR. No murmur, rubs or gallops appreciated. ABDOMEN: +BS. NT/ND. NEURO: No focal motor deficit. EXTREMITIES: No cyanosis, clubbing or edema. PSYCH: Cooperative. Pleasantly confused. - Constitutional Vitals: Temp Pulse Resp BP Pulse Ox 98.7 F 70 20 123/46 98 05/12/21 11:03 05/12/21 11:03 05/12/21 11:03 05/12/21 11:03 05/12/21 11:03 General appearance: Present: mild distress Results - Labs CBC & Chem 7: 05/08/21 06:56 05/10/21 09:33 Labs: Laboratory Last Values WBC 11.9 K/mm3 (4.5-11.0) H 05/08/21 06:56 RBC 4.49 M/mm3 (3.65-5.03) 05/08/21 06:56 Hgb 12.4 gm/dl (11.8-15.2) 05/08/21 06:56 Hct 39.6 % (35.5-45.6) 05/08/21 06:56 MCV 88 fl (84-94) 05/08/21 06:56 MCH 28 pg (28-32) 05/08/21 06:56 MCHC 31 % (32-34) L 05/08/21 06:56 RDW 14.1 % (13.2-15.2) 05/08/21 06:56 Plt Count 286 K/mm3 (140-440) 05/08/21 06:56 Add Manual Diff Complete 05/08/21 06:56 Total Counted 100 05/08/21 06:56 Seg Neutrophils % Credit Review Manager 05/08/21 06:56 Seg Neuts % (Manual) 87.0 % (40.0-70.0) H 05/08/21 06:56 Band Neutrophils % 0 % 05/08/21 06:56 Lymphocytes % (Manual) 5.0 % (13.4-35.0) L 05/08/21 06:56 Reactive Lymphs % (Man) 0 % 05/08/21 06:56 Monocytes % (Manual) 7.0 % (0.0-7.3) 05/08/21 06:56 Eosinophils % (Manual) 1.0 % (0.0-4.3) 05/08/21 06:56 Basophils % (Manual) 0 % (0.0-1.8) 05/08/21 06:56 Metamyelocytes % 0 % 05/08/21 06:56 Myelocytes % 0 % 05/08/21 06:56 Promyelocytes % 0 % 05/08/21 06:56 Blast Cells % 0 % 05/08/21 06:56 Nucleated RBC % Not Reportable 05/08/21 06:56 Seg Neutrophils # Man 10.4 K/mm3 (1.8-7.7) H 05/08/21 06:56 Band Neutrophils # 0.0 K/mm3 05/08/21 06:56 Lymphocytes # (Manual) 0.6 K/mm3 (1.2-5.4) L 05/08/21 06:56 Abs React Lymphs (Man) 0.0 K/mm3 05/08/21 06:56 Monocytes # (Manual) 0.8 K/mm3 (0.0-0.8) 05/08/21 06:56 Eosinophils # (Manual) 0.1 K/mm3 (0.0-0.4) 05/08/21 06:56 Basophils # (Manual) 0.0 K/mm3 (0.0-0.1) 05/08/21 06:56 Metamyelocytes # 0.0 K/mm3 05/08/21 06:56 Myelocytes # 0.0 K/mm3 05/08/21 06:56 Promyelocytes # 0.0 K/mm3 05/08/21 06:56 Blast Cells # 0.0 K/mm3 05/08/21 06:56 WBC Morphology Not Reportable 05/08/21 06:56 Hypersegmented Neuts Not Reportable 05/08/21 06:56 Hyposegmented Neuts Not Reportable 05/08/21 06:56 Hypogranular Neuts Not Reportable 05/08/21 06:56 Smudge Cells Not Reportable 05/08/21 06:56 Toxic Granulation Not Reportable 05/08/21 06:56 Toxic Vacuolation Not Reportable 05/08/21 06:56 Dohle Bodies Not Reportable 05/08/21 06:56 Pelger-Huet Anomaly Not Reportable 05/08/21 06:56 Sondra Rods Not Reportable 05/08/21 06:56 Platelet Estimate Consistent w auto 05/08/21 06:56 Clumped Platelets Not Reportable 05/08/21 06:56 Plt Clumps, EDTA Not Reportable 05/08/21 06:56 Large Platelets Not Reportable 05/08/21 06:56 Giant Platelets Not Reportable 05/08/21 06:56 Platelet Satelliting Not Reportable 05/08/21 06:56 Plt Morphology Comment Not Reportable 05/08/21 06:56 RBC Morphology Normal 05/08/21 06:56 Dimorphic RBCs Not Reportable 05/08/21 06:56 Polychromasia Not Reportable 05/08/21 06:56 Hypochromasia Not Reportable 05/08/21 06:56 Poikilocytosis Not Reportable 05/08/21 06:56 Anisocytosis Not Reportable 05/08/21 06:56 Microcytosis Not Reportable 05/08/21 06:56 Macrocytosis Not Reportable 05/08/21 06:56 Spherocytes Not Reportable 05/08/21 06:56 Pappenheimer Bodies Not Reportable 05/08/21 06:56 Sickle Cells Not Reportable 05/08/21 06:56 Target Cells Not Reportable 05/08/21 06:56 Tear Drop Cells Not Reportable 05/08/21 06:56 Ovalocytes Not Reportable 05/08/21 06:56 Helmet Cells Not Reportable 05/08/21 06:56 Amado-Parcoal Bodies Not Reportable 05/08/21 06:56 [place] Rings Not Reportable 05/08/21 06:56 Wilma Cells Not Reportable 05/08/21 06:56 Bite Cells Not Reportable 05/08/21 06:56 Crenated Cell Not Reportable 05/08/21 06:56 Elliptocytes Not Reportable 05/08/21 06:56 Acanthocytes (Spur) Not Reportable 05/08/21 06:56 Rouleaux Not Reportable 05/08/21 06:56 Hemoglobin C Crystals Not Reportable 05/08/21 06:56 Schistocytes Not Reportable 05/08/21 06:56 Malaria parasites Not Reportable 05/08/21 06:56 Joshua Bodies Not Reportable 05/08/21 06:56 Hem Pathologist Commnt No 05/08/21 06:56 Sodium 142 mmol/L (137-145) 05/10/21 09:33 Potassium 3.6 mmol/L (3.6-5.0) 05/09/21 04:59 Chloride 104.9 mmol/L (98-107) 05/09/21 04:59 Carbon Dioxide 22 mmol/L (22-30) 05/09/21 04:59 Anion Gap 16 mmol/L 05/09/21 04:59 BUN 10 mg/dL (9-20) 05/09/21 04:59 Creatinine 1.0 mg/dL (0.8-1.3) 05/09/21 04:59 Estimated GFR > 60 ml/min 05/09/21 04:59 BUN/Creatinine Ratio 10 % 05/09/21 04:59 Glucose 93 mg/dL (75-100) 05/09/21 04:59 Calcium 9.4 mg/dL (8.4-10.2) 05/09/21 04:59 Magnesium 1.90 mg/dL (1.7-2.3) 05/08/21 06:56 Nasal Screen MRSA (PCR) Negative (Negative) 05/09/21 06:30 Levetiracetam 5.1 mcg/mL (12.0-46.0) L 05/08/21 17:50 Coronavirus (PCR) Negative (Negative) 05/09/21 Unknown Razo/IV: Voiding Method Toilet Active Medications - Current Medications Current Medications: Generic Name Dose Route Start Last Admin Trade Name Freq PRN Reason Stop Dose Admin Acetaminophen 650 mg 05/08/21 11:48 Acetaminophen 325 Mg Tab PO Q4H PRN Pain MILD(1-3)/Fever >100.5/TALAVERA Albuterol 2.5 mg 05/08/21 11:48 Albuterol 2.5 Mg/3 Ml Nebu IH Q4HRT PRN Shortness Of Breath Amlodipine Besylate 10 mg 05/09/21 10:00 05/12/21 09:12 Amlodipine 10 Mg Tab PO 10 mg DAILY NATALIE Administration Aspirin 81 mg 05/09/21 10:00 05/12/21 09:12 Aspirin Ec 81 Mg Tab PO 81 mg QDAY NATALIE Administration Atorvastatin Calcium 10 mg 05/09/21 22:00 05/11/21 21:45 Atorvastatin 10 Mg Tab PO 10 mg QHS NATALIE Administration Folic Acid 1 mg 05/09/21 10:00 05/12/21 09:12 Folic Acid 1 Mg Tab PO 1 mg QDAY NATALIE Administration Hydromorphone HCl 0.5 mg 05/08/21 11:48 05/08/21 16:30 Hydromorphone 1 Mg/1 Ml Inj IV 0.5 mg Q23H PRN Administration Pain , Severe (7-10) Levetiracetam 500 mg 05/10/21 16:00 05/12/21 09:12 Levetiracetam 500 Mg/5 Ml Oral Liqd PO 500 mg BID NATALIE Administration Lorazepam 4 mg 05/12/21 09:00 05/12/21 09:12 Lorazepam 2 Mg Tab PO 05/12/21 17:00 4 mg ONCE@0900 NATALIE Administration Ondansetron HCl 4 mg 05/08/21 11:48 Ondansetron 4 Mg/2 Ml Inj IV Q8H PRN Nausea And Vomiting Oxycodone/Acetaminophen 1 tab 05/08/21 11:48 Oxycodone /Acetaminophen 5-325mg Tab PO Q16H PRN Pain, Moderate (4-6) Perphenazine 6 mg 05/10/21 22:00 05/11/21 21:45 Perphenazine 4 Mg Tab PO 6 mg HS NATALIE Administration Senna 17.2 mg 05/09/21 10:00 05/12/21 09:12 Sennosides 8.6 Mg Tab PO 17.2 mg BID NATALIE Administration Sodium Chloride 10 ml 05/08/21 22:00 05/12/21 09:12 Sodium Chloride 0.9% 10 Ml Flush Syringe IV 10 ml BID NATALIE Administration Sodium Chloride 10 ml 05/08/21 11:48 Sodium Chloride 0.9% 10 Ml Flush Syringe IV PRN PRN LINE FLUSH Tamsulosin HCl 0.8 mg 05/09/21 10:00 05/12/21 09:11 Tamsulosin 0.4 Mg Cap PO 0.8 mg QDAY NATALIE Administration Nutrition/Malnutrition Assess - Dietary Evaluation Nutrition/Malnutrition Findings: Nutrition Notes Start: 05/09/21 11:03 Freq: Status: Active Protocol: Document 05/09/21 11:03 ELVIRA (Rec: 05/09/21 11:28 ELVIRA [id number]) Nutrition Notes 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 Current Diet Cardiac modified Diet -chopped meats- + D Supplements (since L 05/09). Labs/Tests 05/09: Na 122, Cl 86.1, CO2 20 , BUN 6, Crea 0.7, Glu 117. Pertinent Medications 05/09: NaCl 0.9% 1000 ml @ 100 ml/hr, Folic acid 1 mg/day, others nutritionally unremarkable. Height 5 ft 11 in Weight 83.9 kg [place] Body Weight (kg) 78.18 BMI 25.7 Intake Prior to Admission Good Weight change and time frame Pt states being unsure if lss body weight recently. Weight Status Appropriate Subjective/Other Information RD consult for risk of malnutrition, difficulty chewing, and dietary supplementation assessments. No report available on Pt's PO intake of meals at the time. Pt has missing teeth, according to Physical Assessment History notes. Pt shows no signs of concern for risk of malnutrition at the time, according to Physical Assessment History notes. Pt is SNF resident. Percent of energy/protein needs met: Prescribed Cardiac Diet provides for energy/protein needs (2,230 Kcal/85 g) during LOS; additionally, Dietary Supplements will compensate for possible poor or insufficient PO intake of meals with 1,050 Kcal and 60 g of protein. Burn Absent Trauma Absent GI Symptoms None Difficulty In Chewing Food Allergy No Skin Integrity/Comment Unspecified area of concern. #1 Nutrition Diagnosis Biting/Chewing (masticatory) difficulty Etiology Missing teeth. As Evidenced by Signs and Symptoms Pt has missing teeth, according to Physical Assessment History notes. Is patient on ventilator? No Is Patient Ambulatory and/or Out of Bed Yes REE-([facility]-ambulatory/OOB) [ NUTR.[id number]] Calculation Used for Recommendations [facility] Additional Notes Protein: 1-1.2 g/Kg; 84-101 g/ day. Fluids: 1 ml/Kcal, or as per MD. Nutrition Intervention Change Diet Order: Continue Cardiac modified Diet -chopped meats-. Add Supplement/Snack (indicate name/kcal 8 fl oz Ensure Enlive; TID. /protein ) Provides kCal: 1,050 Provides Protein (gm) 60 Goal #1 Facilitate PO intake of meals with mechanical modification during LOS. Goal #2 Compensate, through dietary supplementation, for possible poor or insufficient PO intake of meals during LOS. Goal #3 Maintain body weight within +/ -3% of admission body weight during LOS. Follow-Up By: 05/16/21 Additional Comments Continue monitoring food tolerance, %PO intake of meals , and BM.
[2021-05-12] MEDS: PERPHENAZINE 4 MG TAB PO SCH (21:37)
[2021-05-12] MEDS: traZODone 50 MG TAB PO SCH (21:37)
[2021-05-13] MEDS: FOLIC ACID 1 MG TAB PO SCH (09:16)
[2021-05-13] MEDS: ASPIRIN EC 81 MG TAB PO SCH (09:16)
[2021-05-13] MEDS: levETIRAcetam 500 MG/5 ML ORAL LIQD PO SCH ×2 (09:16→21:35)
[2021-05-13] MEDS: amLODIPine 10 MG TAB PO SCH (09:17)
[2021-05-13] MEDS: SENNOSIDES 8.6 MG TAB PO SCH ×2 (09:17→21:35)
[2021-05-13] MEDS: TAMSULOSIN 0.4 MG CAP PO SCH (09:17)
[2021-05-13] MEDS ORDERED: PERPHENAZINE 4 MG TAB PO SCH (10:00)
--- NOTE | 2021-05-13 10:10 | Discharge Summary ---
Providers - Providers Date of Admission: 05/08/21 11:48 Attending physician: JETHRO LAWRENCE MD 05/08/21 09:04 Consult to Physician [CONS] Urgent Comment: Consulting Provider: HOLA WILL Physician Instructions: Reason For Exam: abnormal rhythm strip 05/09/21 07:50 Consult to Physician [CONS] Routine Comment: left mess./ maryanne Consulting Provider: HEMALATHA FARMER Physician Instructions: Reason For Exam: SEIZURE Primary care physician: VP ANALYTICS Hospitalization Condition: Stable Disposition: 30 STILL A PATIENT Exam - Constitutional Vitals: Temp Pulse Resp BP Pulse Ox 98.6 F 80 16 136/46 97 05/13/21 09:17 05/13/21 09:17 05/13/21 09:17 05/13/21 09:17 05/13/21 09:17 Plan Care Plan Goals: Please follow-up with your primary care doctor. Please follow-up with a neurologist to better titrate your seizure medications. Please make sure you are drinking at least 4 glasses of water daily. Your sodium levels were low which can contribute to seizure. Making sure you are getting water every day will help with this. Follow up with: PRIMARY CAREMD [Primary Care Provider] - 3-5 Days
[2021-05-13 20:11] VITALS: BP 145/66
[2021-05-13] MEDS: PERPHENAZINE 4 MG TAB PO SCH (21:34)
[2021-05-13] MEDS: traZODone 50 MG TAB PO SCH (21:35)
== END 2021-05-13 23:47 | disposition home or self-care (01) | DRG 100 ==
LOC: ED 06:01 → IMCU 11:48 → 4A 05-09 15:43
PROVIDERS: ADMIT Internal Medicine; ATTEND Student in an Organized Health Care Education/Training Program
DX: G40.901 Epilepsy, unspecified, not intractable, with status epilepticus (principal); G93.41 Metabolic encephalopathy; E87.1 Hypo-osmolality and hyponatremia; E87.2 Acidosis; I16.0 Hypertensive urgency; Z20.822 Contact with and (suspected) exposure to COVID-19; F03.90 Unspecified dementia, unspecified severity, without behavioral disturbance, psychotic disturbance, mood disturbance, and anxiety; I10 Essential (primary) hypertension; N40.0 Benign prostatic hyperplasia without lower urinary tract symptoms; S01.512A Laceration without foreign body of oral cavity, initial encounter; X58.XXXA Exposure to other specified factors, initial encounter; Y93.89 Activity, other specified; Y92.89 Other specified places as the place of occurrence of the external cause; Y99.8 Other external cause status; E78.5 Hyperlipidemia, unspecified; I44.0 Atrioventricular block, first degree; Z82.49 Family history of ischemic heart disease and other diseases of the circulatory system; Z88.8 Allergy status to other drugs, medicaments and biological substances
CPT/HCPCS: 36415; 70450; 70460; 71045; 80048; 80177; 83735; 84295; 85007; 85025; 87641; 93005; 93010; 93306; 94640; 95819; G0378; Q0162; C8929; J1170; J1953; J2060; J7030; U0003